=== PATIENT | female | born 1955 | race Caucasian/White ===

== ENCOUNTER 2020-01-30 10:10 | Inpatient (IN) ==
[2020-01-30] MEDS ORDERED: cefTRIAXone SODIUM 2,000 MG/70 ML BAG IV STA (10:36)
[2020-01-30] MEDS ORDERED: VANCOMYCIN CONSULT ACTIVE PRN (10:36)
[2020-01-30] MEDS ORDERED: VANCOMYCIN HCL 1,500 MG in SODIUM CHLORIDE 0.9% 500 ML IV ONE (10:36)
[2020-01-30] MEDS ORDERED: ONDANSETRON INJ 2 MG/ML 2 ML VIAL IV STA (10:40)
[2020-01-30] MEDS ORDERED: HYDROmorphone INJ 0.5 MG/0.5 ML SYR IV STA ×3 (10:40→14:09)
[2020-01-30] MEDS ORDERED: SODIUM CHLORIDE 0.9% 1000ML 1,000 ML IV SCH (10:45)
[2020-01-30 11:17] LABS: Basophils # (auto) 0.01 K/uL (0-0.2); Basophils % (auto) 0.1 %; Eosinophils # (auto) 0.08 K/uL (0-0.5); Eosinophils % (auto) 0.5 %; Hematocrit (blood only) 35.6 % (37-47); Hemoglobin 11.4 g/dL (12.0-16.0); Immature Granulocytes # (auto) 0.05 K/uL (0.00-0.02); Immature Granulocytes % (auto) 0.3 %; Lymphocytes # (auto) 1.56 K/uL (1.2-3.4); Lymphocytes % (auto) 8.9 %; Mean Corpuscular Hemoglobin 32.9 pg (25-34); Mean Corpuscular Volume 102.6 fL (80-100); Mean Platelet Volume 10.4 fL (7.4-10.4); Monocytes # (auto) 0.98 K/uL (0.11-0.59); Monocytes % (auto) 5.6 %; Neutrophils # (auto) 14.89 K/uL (1.4-6.5); Neutrophils % (auto) 84.6 %; Platelet Count 180 K/uL (130-400); RDW Coefficient of Variation 13.7 % (11.5-14.5); RDW Standard Deviation 51.4 fL (36.4-46.3); Red Blood Count 3.47 M/uL (4.2-5.4); White Blood Count 17.57 K/uL (4.8-10.8)
[2020-01-30 11:26] LABS: Partial Thromboplastin Ratio 0.9; Partial Thromboplastin Time 24.2 Seconds (21.0-31.0); Prothrombin Time 10.3 Seconds (9.0-12.0)
[2020-01-30 11:31] LABS: Albumin Level 3.3 gm/dl (3.4-5.0); BUN Creatinine Ratio 19.9 (10-20); Calcium 8.2 mg/dl (8.5-10.1); Creatinine Clr Calc Pharmacy 80.1 ml/min; Est GFR (African American) 102.3; Est GFR (Non-African American) 88.3; Magnesium 2.1 mg/dl (1.8-2.4); Potassium 3.7 mmol/L (3.5-5.1)
[2020-01-30 11:34] LABS: Albumin Globulin Ratio 1.1 (0.9-2); Bilirubin,Total 0.5 mg/dl (0.2-1); Total Protein 6.3 gm/dl (6.4-8.2)
[2020-01-30] MEDS ORDERED: IOVERSOL 100ml IV ONE (11:40)
--- NOTE | 2020-01-30 12:11 | CT Scan Report ---
ABDOMEN AND PELVIS CT WITH IV CONTRAST CT DOSE: 548.02 mGy.cm HISTORY: suprapubic cellulitis, ? abscess. TECHNIQUE: Multiaxial CT images of the abdomen and pelvis were performed following the use of intrave nous contrast. A dose lowering technique was utilized adhering to the principles of ALARA. COMPARISON STUDY: None. FINDINGS: The lung bases are clear. No pneumoperitoneum. No pneumatosis. No suspicious lytic or blast ic osseous lesions. Bilateral breast implants are partially imaged. Hepatic steatosis. Areas of focal fatty sparing near the gallbladder fossa and aleah hepatis. The main portal vein is patent. The gall bladder, spleen, adrenal glands, and pancreas are within normal limits. No hydronephrosis. Normal lef t kidney. A 5 mm hypodense lesion within the lower pole the right kidney. This is technically too sma ll to characterize but favors a cyst. No retroperitoneal lymphadenopathy. The bladder, uterus, bilate ral adnexa are within normal limits. Colonic diverticulosis. No evidence for acute diverticulitis. No bowel wall thickening or obstruction. Normal appendix. Within the anterior pelvis and left lower chago drant there is skin thickening and subcutaneous fat stranding. This favors a cellulitis. No loculated fluid collections to suggest an abscess. IMPRESSION: 1. Skin thickening and subcutaneous fat stranding within the left lower quadrant/anterior pelvis. Thi s favors a cellulitis. No loculated fluid collections to suggest an abscess. 2. Hepatic steatosis. 3. Colonic diverticulosis. ACT 112: Negative or not required by law. Electronically signed by: Moreno Marks M.D. 01/30/2020 12:10 PM
[2020-01-30] MEDS: SODIUM CHLORIDE 0.9% 1000ML 1,000 ML IV SCH ×2 (12:18→19:08)
--- NOTE | 2020-01-30 12:23 | History & Physical Report ---
Date of Service January 30, 2020 Assessment & Plan (1) Cellulitis: lower abd/genital skin infection started and continued on vancomycin and ceftriaxone, no abscess seen on ct scan patient will also continue on Valtrex therapy herpetic cultures are pending Patient has significant mons pubis cellulitis with induration erythema patient only has some very small open areas to the lateral left inguinal fold these are nondescript not appear classic for viral ulcerations or chancroid CT abd/pelvis IMPRESSION: 1. Skin thickening and subcutaneous fat stranding within the left lower quadrant/anterior pelvis. This favors a cellulitis. No loculated fluid collections to suggest an abscess. 2. Hepatic steatosis. 3. Colonic diverticulosis. Pain control with oral and parenteral opiate medications as well as Tylenol and ibuprofen (2) Viral infection: initial concern for herpes (possible shingles) continues on valtrex (3) Breast cancer: continue tamoxifen (4) HTN (hypertension): continue bisoprolol History of Present Illness Primary Care Provider: NO PCP 64-year-old female who presents here today for fever and indurated mons pubis with concern for secondary cellulitis of the skin. Her states that this is been about 2 months in the makings initially starting as a left leg nondescript dermatitis which was seemingly pustular in nature. She did see physicians at urgent care which she had one biopsied were released cut open. Been no defined diagnosis made initially insect bites were considered did not been discussed that this could be a shingles type rash. Patient was seen in our ER 1 day prior to admission where she had a vaginal evaluation including cultures. She was placed on Valtrex. Subsequently she developed fevers and worsening redness of her mons pubis returned with concern for secondary cellulitis patient is admitted to our [facility]. In the emergency department she was given vancomycin ceftriaxone. Previously there had been viral cultures as well as gynecological cultures obtained. Vaginal cultures are just growing strep at this time. Patient has no other complaints or problems Allergies Allergy/AdvReac Type Severity Reaction Status Date / Time latex Allergy Intermediate Burning/Rash Unverified 01/30/20 11:20 where latex touches Penicillins Allergy Unknown Was a Unverified 01/30/20 11:20 Child-Unknown varenicline [From Chantix] AdvReac Intermediate Nightmares Unverified 01/30/20 11:20 trazodone AdvReac Mild Grumpy Unverified 01/30/20 11:20 Home Medications Home Medications Medication Instructions Recorded Confirmed Type bisoprolol fumarate [Zebeta] 10 mg PO PM 01/29/20 01/30/20 History denosumab [Prolia] 60 mg SUBCUT Q180D 01/29/20 01/30/20 History hydrocodone-acetaminophen [[place]] 1 tab PO Q6H PRN #14 tab 01/29/20 01/30/20 Rx ibuprofen [Motrin IB] 200 mg PO Q6H PRN 01/29/20 01/30/20 History lidocaine 1 applic TOPICAL Q6H PRN 01/29/20 01/30/20 History methylphenidate HCl [Concerta] 18 mg PO QAM 01/29/20 01/30/20 History tamoxifen 20 mg PO PM 01/29/20 01/30/20 History valacyclovir [Valtrex] 1,000 mg PO TID 7 Days #21 tab 01/29/20 01/30/20 Rx Past Med/Surg History Medical History (Updated 01/30/20 @ 12:26 by Gaurang Jeffries MD) Breast cancer Social History (Updated 01/29/20 @ 16:04 by Ángela Loyd MD) Smoking Status: Former smoker Second Hand Exposure: No; Do You Dip or Chew Tobacco: No; Tobacco Cessation Education Requested by Patient: No Hx Alcohol Use: No Hx Substance Use: No Preferred Language: Thai Communication Ability: Effective Gi Asst Required: No Beliefs That Will Affect Care: None marital status: Current Living Situation: Spouse Other Information That Helps Us Care for You: No Feels Safe at Home: Yes Safety Concerns: Feels Safe At This Time Assistive Devices: None Review of Systems Review of Systems: Mild distress and fatigue no headache, blurry or double vision no speech or swallowing issues no chest pain, pressure or palpitations no shortness of breath, cough or wheezes no abdominal pain, nausea or vomiting, diarrhea or constipation no dysuria, hematuria or frequency She is a rash to her inguinal area and her mons pubis no focal joint pain or swelling no back pain, CVA tenderness or radicular pain no bruising, bleeding no focal signs of weakness or numbness or altered sensation no complaints of anxiety or depression. Physical Exam Physical Exam: The patient appeared well nourished and normally developed. Vital signs as documented. Head exam is normocephalic atraumatic no scleral icterus Neck is without JVD, thyromegaly, or carotid bruits. Lungs are clear to auscultation, no focal loss of breath sounds Cardiac exam, Rhythm is regular.. No murmurs, rubs or gallops. Abdominal exam reveals normal bowel sounds, soft non tender, no masses Nor male female external genitalia there is some punctate erythematous lesions which could be folliculitis there are 2-3 very small open areas to the left inguinal fold there is a general erythema in the inguinal fold however there is a more violaceous warm indurated area involving the whole mons pubis Extremities are nonedematous and both pedal pulses are present Neurologic exam is alert and oriented, no focal loss of strength or sensation Skin is with no outside skin changes except for what was described above Psychologically is without concerns for anxiety or depression. Results & Data Results & Data ([facility]) Vital Signs (Past 12 Hours) Vital Signs Temp Pulse Pulse Resp BP BP Pulse Ox 01/30/20 12:03 92 H 18 115/61 99 01/30/20 11:22 85 16 121/71 96 01/30/20 11:13 97 01/30/20 11:08 97 01/30/20 10:15 99.5 F 93 H 20 143/76 H 97 PG Care Time/CCT Total # of Minutes Spent Total Time Spent with Patient: Total time spent is greater than 50% in coordination of care (as documented) at patient's floor/unit and/or counseling patient: Coding Level of Care Code 74685 Initial Inpt Care Lvl 2 Diagnoses Cellulitis L03.90 Viral infection B34.9 Breast cancer C50.919 HTN (hypertension) I10
--- NOTE | 2020-01-30 12:34 | XRay Report ---
XR chest 1V portable HISTORY: SEPSIS COMPARISON: None. FINDINGS: The lungs are clear. Cardiac silhouette is normal in size. No pleural effusions. No pneumot horax. IMPRESSION: No acute process. ACT 112: Negative or not required by law. Electronically signed by: Moreno Marks M.D. 01/30/2020 12:33 PM
[2020-01-30 14:29] LABS: Appearance Urine Clear (Clear); Bilirubin Urine Negative (Negative); Blood Urine Negative (Negative); Color Urine Yellow; Glucose Urine UA Negative (Negative); Ketones Urine Negative (Negative); Leukocyte Esterase Urine Negative (Negative); Nitrite Urine Negative (Negative); Protein Urine Negative (Negative); Specific Gravity Urine > 1.045 (1.000-1.030); Urobilinogen Urine Negative (Negative); pH Urine 6.5 (4.5-7.5)
[2020-01-30] MEDS ORDERED: MoRPHine SULFATE 4 MG/ML 1 ML CARP\\VIAL IV PRN (15:05)
[2020-01-30] MEDS ORDERED: POLYETHYLENE (MIRALAX) 17 GM PACK PO PRN (15:05)
[2020-01-30] MEDS ORDERED: ALUMINUM/MAGNESIUM SUSP 30 ML UDC PO PRN (15:05)
--- NOTE | 2020-01-30 15:18 | Pharmacy Report ---
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 meets criteria for vancomycin AUC dosing nomogram AUC/VILMA is the preferred PK/PD target for vancomycin * Target AUC/VILMA = 400-600 * AUC guided dosing is effective and associated with decreased risk of nephrotoxicity Plan Vancomycin * Will dose per AUC dosing nomogram based on weight and crcl * Vancomycin 1500mg (19mg/kg) loading dose given in ED, then, * Vancomycin 1500mg IV Q12hrs per nomogram * Goal trough level for SST : 10 to 20 mcg/mL based on c/s * Trough level ordered for: 02/01/20 @ 0800 (prior to 4th dose) Pharmacy will continue to follow and will adjust dose/frequency as necessary. Thank you.
--- NOTE | 2020-01-30 15:41 | Emergency Department Note ---
History of Present Illness General Chief complaint: Infection Stated complaint: HAS ABSCESS IN GROIN HAS DEVELOPED FEVER Source: patient and family Mode of arrival: ambulatory Limitations: no limitations History of Present Illness Provider complaint: Increased pain and redness of the left groin, fever Maximum Pain Intensity: 8 This patient is a 64-year-old female who presents to the emergency department with complaints of increased redness and pain of the left lower abdomen/suprapubic region after being diagnosed yesterday with a shingles outbreak versus herpes outbreak of the left labia and groin. Patient has a remote history of breast cancer and does take tamoxifen. Several days ago she developed a redness and swelling of the left labia with "small abscesses." Yesterday the patient was evaluated in the emergency department and underwent a full pelvic exam with cultures, HSV serum testing which is pending she has been on Valtrex for which she took 1 dose in the ED and 1 dose at home. She has been taking [place] for pain. Patient states she spiked a temperature of 102 degrees and the pain has not been controlled. She is concerned about the possibility of a large abscess in the suprapubic region. Home Medications Home Medications Medication Instructions Recorded Confirmed Type bisoprolol fumarate [Zebeta] 10 mg PO PM 01/29/20 01/30/20 History denosumab [Prolia] 60 mg SUBCUT Q180D 01/29/20 01/30/20 History hydrocodone-acetaminophen [[place]] 1 tab PO Q6H PRN #14 tab 01/29/20 01/30/20 Rx ibuprofen [Motrin IB] 200 mg PO Q6H PRN 01/29/20 01/30/20 History lidocaine 1 applic TOPICAL Q6H PRN 01/29/20 01/30/20 History methylphenidate HCl [Concerta] 18 mg PO QAM 01/29/20 01/30/20 History tamoxifen 20 mg PO PM 01/29/20 01/30/20 History valacyclovir [Valtrex] 1,000 mg PO TID 7 Days #21 tab 01/29/20 01/30/20 Rx Allergies Allergy/AdvReac Type Severity Reaction Status Date / Time latex Allergy Intermediate Burning/Rash Unverified 01/30/20 11:20 where latex touches Penicillins Allergy Unknown Was a Unverified 01/30/20 11:20 Child-Unknown varenicline [From Chantix] AdvReac Intermediate Nightmares Unverified 01/30/20 11:20 trazodone AdvReac Mild Grumpy Unverified 01/30/20 11:20 Past Med/Surg History Medical History Breast cancer Social History Smoking Status: Former smoker Second Hand Exposure: No; Do You Dip or Chew Tobacco: No; Tobacco Cessation Education Requested by Patient: No Hx Alcohol Use: No Hx Substance Use: No Preferred Language: Guinean Communication Ability: Effective Forensic Medical Examiner Required: No Beliefs That Will Affect Care: None marital status: Current Living Situation: Spouse Other Information That Helps Us Care for You: No Feels Safe at Home: Yes Safety Concerns: Feels Safe At This Time Assistive Devices: None Review of Systems See HPI for pertinent positives & negatives. and A total of 10 systems reviewed and were otherwise negative Physical Exam Vital Signs Vital Signs - 24 hr 01/30/20 11:22 01/30/20 12:03 Pulse Rate [Apical] 85 92 H Pulse Rhythm [Apical] Regular Pulse Strength [Apical] Normal Respiratory Rate 16 18 Respiratory Effort / Characteristics Non-Labored Spontaneous Respiratory Depth Normal Respiratory Pattern Regular Blood Pressure [Left Arm] 121/71 115/61 Blood Pressure Mean [Left Arm] 87 79 Blood Pressure Position [Left Arm] Lying Pulse Oximetry 96 99 Oxygen Delivery Method Room Air Room Air Vital signs reviewed. General: Generally well-appearing 64-year-old female in some discomfort. HEENT: No scleral icterus, PERRLA, neck supple. Atraumatic. Cardiovascular: Regular rate and rhythm, no extra sounds. Pulmonary: Clear to auscultation bilaterally, normal work of breathing. Abdomen: Soft, nontender until the suprapubic region. Left aspect with rob ration and tenderness. Please see below. Nondistended, positive bowel sounds. Musculoskeletal: Atraumatic, no peripheral edema. Neurologic: Patient awake alert and oriented x 3 Skin: Warm, dry, left most aspect of the suprapubic region and left lower quadrant with erythema and induration. There is no palpable fluctuance. Several areas of vesicular type lesions and swelling noted to the left labia. Course Administered Medications Bisoprolol Fumarate (Bisoprolol Fumarate 5 Mg Tab) 10 mg PO PM DARRELL Stop: 02/29/20 20:59 Last Admin: 01/30/20 20:13 Dose: 10 mg Documented by: [id number] Enoxaparin Sodium (Enoxaparin Inj 40 Mg/0.4 Ml Syr) 40 mg SQ QAM [facility] Stop: 03/01/20 08:59 Last Admin: 01/31/20 08:28 Dose: 40 mg Documented by: [id number] Sodium Chloride (Nss 1000ml) 1,000 mls @ 150 mls/hr IV .Q6H40M [facility] Stop: 02/29/20 12:14 Last Admin: 01/31/20 03:07 Dose: 150 mls/hr Documented by: [id number] Infusion: 01/31/20 01:49 Dose: 150 mls/hr Documented by: [id number] Admin: 01/30/20 19:08 Dose: 150 mls/hr Documented by: [id number] Infusion: 01/30/20 18:59 Dose: 150 mls/hr Documented by: [id number] Admin: 01/30/20 12:18 Dose: 150 mls/hr Documented by: [id number] Vancomycin HCl 1,500 mg/ (Sodium Chloride) 530 mls @ 200 mls/hr IV Q12H [facility] Stop: 01/31/20 12:00 Last Admin: 01/31/20 08:26 Dose: 200 mls/hr Documented by: [id number] Infusion: 01/30/20 22:29 Dose: 0 mls/hr Documented by: [id number] Admin: 01/30/20 19:50 Dose: 200 mls/hr Documented by: [id number] Ibuprofen (Ibuprofen 200 Mg Tab) 400 mg PO Q6H PRN PRN Reason: Pain Stop: 02/29/20 15:04 Last Admin: 01/31/20 01:53 Dose: 400 mg Documented by: [id number] Admin: 01/30/20 18:08 Dose: 400 mg Documented by: [id number] Morphine Sulfate (Morphine Sulfate 2 Mg/Ml Carp) 2 mg IV Q4 PRN PRN Reason: Pain Stop: 02/13/20 15:04 Last Admin: 01/31/20 01:53 Dose: 2 mg Documented by: [id number] Oxycodone HCl (Oxycodone Hcl Ir 5 Mg Tab (Immediate Release)) 10 mg PO Q6H PRN PRN Reason: Moderate Pain Stop: 02/13/20 15:04 Last Admin: 01/31/20 07:40 Dose: 10 mg Documented by: [id number] Admin: 01/30/20 21:46 Dose: 10 mg Documented by: [id number] Admin: 01/30/20 16:36 Dose: 10 mg Documented by: [id number] Tamoxifen Citrate (Tamoxifen Citrate 10 Mg Tablet) 20 mg PO PM DARRELL Stop: 02/29/20 20:59 Last Admin: 01/30/20 20:13 Dose: 20 mg Documented by: [id number] Cosigned by: [id number] Valacyclovir HCl (Valacyclovir Hcl 500 Mg Tablet) 1,000 mg PO TID DARRELL Stop: 02/06/20 15:44 Last Admin: 01/31/20 08:31 Dose: 1,000 mg Documented by: [id number] Admin: 01/30/20 20:13 Dose: 1,000 mg Documented by: [id number] Admin: 01/30/20 17:16 Dose: 1,000 mg Documented by: [id number] Discontinued Medications Hydromorphone HCl (Hydromorphone Inj 0.5 Mg/0.5 Ml Syr) 0.5 mg IV NOW STA Stop: 01/30/20 10:41 Last Admin: 01/30/20 11:04 Dose: 0.5 mg Documented by: [id number] Hydromorphone HCl (Hydromorphone Inj 0.5 Mg/0.5 Ml Syr) 0.5 mg IV NOW STA Stop: 01/30/20 12:10 Last Admin: 01/30/20 12:14 Dose: 0.5 mg Documented by: [id number] Hydromorphone HCl (Hydromorphone Inj 0.5 Mg/0.5 Ml Syr) 0.5 mg IV NOW STA Stop: 01/30/20 14:10 Last Admin: 01/30/20 14:16 Dose: 0.5 mg Documented by: [id number] Sodium Chloride (Nss 1000ml) 1,000 mls @ 999 mls/hr IV .Q1H1M DARRELL Stop: 01/30/20 11:45 Last Infusion: 01/30/20 12:18 Dose: 0 mls/hr Documented by: [id number] Admin: 01/30/20 11:04 Dose: 999 mls/hr Documented by: [id number] Ceftriaxone Sodium (Rocephin) 2,000 mg in 70 mls @ 140 mls/hr IV NOW STA Stop: 01/30/20 11:05 Last Infusion: 01/30/20 12:05 Dose: 0 mls/hr Documented by: [id number] Admin: 01/30/20 11:15 Dose: 140 mls/hr Documented by: [id number] Vancomycin HCl 1,500 mg/ (Sodium Chloride) 530 mls @ 200 mls/hr IV NOW ONE Stop: 01/30/20 13:14 Last Infusion: 01/30/20 14:26 Dose: 0 mls/hr Documented by: [id number] Admin: 01/30/20 11:15 Dose: 200 mls/hr Documented by: [id number] Ioversol (Ioversol 100ml) 94 ml IV ONCE ONE Stop: 01/30/20 11:41 Last Admin: 01/30/20 11:41 Dose: 94 ml Documented by: [id number] Ondansetron HCl (Ondansetron Inj 2 Mg/Ml 2 Ml Vial) 4 mg IV NOW STA Stop: 01/30/20 10:41 Last Admin: 01/30/20 11:05 Dose: 4 mg Documented by: [id number] Medical Decision Making Differential Diagnosis Differential diagnosis: Shin's gangrene, abscess, shingles, general herpes, STI, bacterial vaginosis, trauma, hematoma Medical Records Attestation: I reviewed the patient's medical records. Home Medications Current Medication List: was personally reviewed by me Laboratory Data Attestation: I reviewed the patient's lab results. Result diagrams: 01/31/20 06:38 01/31/20 06:38 Lab Results 01/30/20 01/30/20 01/30/20 Range/Units 11:00 11:00 11:00 WBC 17.57 H (4.8-10.8) K/uL RBC 3.47 L (4.2-5.4) M/uL Hgb 11.4 L (12.0-16.0) g/dL Hct 35.6 L (37-47) % MCV 102.6 H (80-100) fL MCH 32.9 (25-34) pg MCHC 32.0 (32-36) g/dL RDW Std Deviation 51.4 H (36.4-46.3) fL RDW Coeff of Girma 13.7 (11.5-14.5) % Plt Count 180 (130-400) K/uL MPV 10.4 (7.4-10.4) fL Immature Gran % (Auto) 0.3 % Neut % (Auto) 84.6 % Lymph % (Auto) 8.9 % Scott % (Auto) 5.6 % Eos % (Auto) 0.5 % Baso % (Auto) 0.1 % Neut # (Auto) 14.89 H (1.4-6.5) K/uL Lymph # (Auto) 1.56 (1.2-3.4) K/uL Scott # (Auto) 0.98 H (0.11-0.59) K/uL Eos # (Auto) 0.08 (0-0.5) K/uL Baso # (Auto) 0.01 (0-0.2) K/uL Immature Gran # (Auto) 0.05 H (0.00-0.02) K/uL PT 10.3 (9.0-12.0) Seconds INR 1.0 (0.9-1.1) APTT 24.2 (21.0-31.0) Seconds PTT Ratio 0.9 Sodium 139 (136-145) mmol/L Potassium 3.7 (3.5-5.1) mmol/L Chloride 107 (98-107) mmol/L Carbon Dioxide 26 (21-32) mmol/L Anion Gap 6.0 (3-11) BUN 15 (7-18) mg/dl Creatinine 0.73 (0.6-1.2) mg/dl Est Cr Clr Drug Dosing 80.1 ml/min Est GFR ( Amer) 102.3 Est GFR (Non-Af Amer) 88.3 BUN/Creatinine Ratio 19.9 (10-20) Glucose 165 H (70-99) mg/dl Lactate (0.4-2.0) mmol/L Calcium 8.2 L (8.5-10.1) mg/dl Magnesium 2.1 (1.8-2.4) mg/dl Total Bilirubin 0.5 (0.2-1) mg/dl AST 29 (15-37) U/L ALT 125 H (12-78) U/L Alkaline Phosphatase 57 (45-117) U/L Total Protein 6.3 L (6.4-8.2) gm/dl Albumin 3.3 L (3.4-5.0) gm/dl Globulin 3.0 (2.5-4.0) gm/dl Albumin/Globulin Ratio 1.1 (0.9-2) Procalcitonin (0-0.5) ng/ml 01/30/20 01/30/20 Range/Units 11:00 11:00 WBC (4.8-10.8) K/uL RBC (4.2-5.4) M/uL Hgb (12.0-16.0) g/dL Hct (37-47) % MCV (80-100) fL MCH (25-34) pg MCHC (32-36) g/dL RDW Std Deviation (36.4-46.3) fL RDW Coeff of Girma (11.5-14.5) % Plt Count (130-400) K/uL MPV (7.4-10.4) fL Immature Gran % (Auto) % Neut % (Auto) % Lymph % (Auto) % Scott % (Auto) % Eos % (Auto) % Baso % (Auto) % Neut # (Auto) (1.4-6.5) K/uL Lymph # (Auto) (1.2-3.4) K/uL Scott # (Auto) (0.11-0.59) K/uL Eos # (Auto) (0-0.5) K/uL Baso # (Auto) (0-0.2) K/uL Immature Gran # (Auto) (0.00-0.02) K/uL PT (9.0-12.0) Seconds INR (0.9-1.1) APTT (21.0-31.0) Seconds PTT Ratio Sodium (136-145) mmol/L Potassium (3.5-5.1) mmol/L Chloride (98-107) mmol/L Carbon Dioxide (21-32) mmol/L Anion Gap (3-11) BUN (7-18) mg/dl Creatinine (0.6-1.2) mg/dl Est Cr Clr Drug Dosing ml/min Est GFR ( Amer) Est GFR (Non-Af Amer) BUN/Creatinine Ratio (10-20) Glucose (70-99) mg/dl Lactate 2.3 H* (0.4-2.0) mmol/L Calcium (8.5-10.1) mg/dl Magnesium (1.8-2.4) mg/dl Total Bilirubin (0.2-1) mg/dl AST (15-37) U/L ALT (12-78) U/L Alkaline Phosphatase (45-117) U/L Total Protein (6.4-8.2) gm/dl Albumin (3.4-5.0) gm/dl Globulin (2.5-4.0) gm/dl Albumin/Globulin Ratio (0.9-2) Procalcitonin < 0.05 (0-0.5) ng/ml Imaging Data Radiologist's Impression: XR chest 1V portable HISTORY: SEPSIS COMPARISON: None. FINDINGS: The lungs are clear. Cardiac silhouette is normal in size. No pleural effusions. No pneumothorax. IMPRESSION: No acute process. ACT 112: Negative or not required by law. Electronically signed by: Moreno Marks M.D. 01/30/2020 12:33 PM Dictated: 01/30/20 1233 Transcribed: 01/30/[address] WITH IV CONTRAST CT DOSE: 548.02 mGy.cm HISTORY: suprapubic cellulitis, ? abscess. TECHNIQUE: Multiaxial CT images of the abdomen and pelvis were performed following the use of intravenous contrast. A dose lowering technique was utilized adhering to the principles of ALARA. COMPARISON STUDY: None. FINDINGS: The lung bases are clear. No pneumoperitoneum. No pneumatosis. No suspicious lytic or blastic osseous lesions. Bilateral breast implants are partially imaged. Hepatic steatosis. Areas of focal fatty sparing near the gallbladder fossa and aleah hepatis. The main portal vein is patent. The gallbladder, spleen, adrenal glands, and pancreas are within normal limits. No hydronephrosis. Normal left kidney. A 5 mm hypodense lesion within the lower pole the right kidney. This is technically too small to characterize but favors a cyst. No retroperitoneal lymphadenopathy. The bladder, uterus, bilateral adnexa are within normal limits. Colonic diverticulosis. No evidence for acute diverticulitis. No bowel wall thickening or obstruction. Normal appendix. Within the anterior pelvis and left lower quadrant there is skin thickening and subcutaneous fat stranding. This favors a cellulitis. No loculated fluid collections to suggest an abscess. IMPRESSION: 1. Skin thickening and subcutaneous fat stranding within the left lower q uadrant/anterior pelvis. This favors a cellulitis. No loculated fluid collections to suggest an abscess. 2. Hepatic steatosis. 3. Colonic diverticulosis. ACT 112: Negative or not required by law. Electronically signed by: Moreno Marks M.D. 01/30/2020 12:10 PM Dictated: 01/30/20 1146 Transcribed: 01/30/20 1146 ECG Data Attestation: I personally reviewed and interpreted this ECG as follows: Indication: + other (sepsis) Rate (beats per minute): 82 Rhythm: + normal sinus ECG Intervals/blocks: + Normal QT-c ECG [place]: + Normal ECG ST segments: + Nonspecific ST abnormalities ECG Findings: + Other (Left atrial enlargement) Blood Pressure Blood Pressure Findings: Normal blood pressure Blood Pressure Disposition: did not require urgent referral MDM Narrative This pt was evaluated and appeared and appeared to be in no distress. IV access was obtained and lab work was drawn. Pt was medicated with IV dilaudid and zofran for pain/nausea. Pt was hydrated with NSS, medicated with IV ceftriaxone and vancomycin. Blood cultures were drawn prior to ATBx. CT scan of the abd and pelvis was performed and revealed cellulitic changes but no fluid collection. Lab work revealed elevated WBC, lactate. Pt likely has shingles vs herpes with superimposed cellulitis. Pt was d/w hospitalist service for further management. Pt and were made aware of the findings and plan, and agreed. Impression & Plan Cellulitis of suprapubic region, Herpes genitalis in women Discharge Plan Visit Data Chief Complaint: Infection Stated Complaint: HAS ABSCESS IN GROIN HAS DEVELOPED FEVER ED Provider: Ángela Loyd Discharge Problem: Cellulitis of suprapubic region, Herpes genitalis in women Patient Disposition: Admitted As Inpatient Discharge Instructions Interventions: ED Discharge Assessment Last Done: 01/30/20 14:33
[2020-01-30] MEDS: oxyCODONE HCL IR 5 MG TAB (IMMEDIATE RELEASE) PO PRN ×2 (16:36→21:46)
[2020-01-30] MEDS: valACYclovir HCL 500 MG TABLET PO SCH ×2 (17:16→20:13)
[2020-01-30] MEDS: IBUPROFEN 200 MG TAB PO PRN (18:08)
[2020-01-30] MEDS: VANCOMYCIN HCL 1,500 MG in SODIUM CHLORIDE 0.9% 500 ML IV SCH (19:50)
[2020-01-30] MEDS: BISOPROLOL FUMARATE 5 MG TAB PO SCH (20:13)
[2020-01-30] MEDS: TAMOXIFEN CITRATE 10 MG TABLET PO SCH (20:13)
[2020-01-31] MEDS: IBUPROFEN 200 MG TAB PO PRN ×3 (01:53→23:50)
[2020-01-31] MEDS: MoRPHine SULFATE 2 MG/ML CARP IV PRN ×2 (01:53→11:57)
[2020-01-31] MEDS: SODIUM CHLORIDE 0.9% 1000ML 1,000 ML IV SCH ×4 (03:07→21:35)
--- NOTE | 2020-01-31 06:20 | Electrocardiogram Report ---
Test Reason : Blood Pressure : / mmHG Vent. Rate : 082 BPM Atrial Rate : 082 BPM P-R Int : 144 ms QRS Dur : 086 ms QT Int : 372 ms P-R-T Axes : 060 009 032 degrees QTc Int : 434 ms Normal sinus rhythm Possible Left atrial enlargement Nonspecific T wave abnormality No previous ECGs available Confirmed by Rene Lazaro ([id number]) on 01/31/2020 6:19:24 AM Referred By: REFERRED SELF Confirmed By:Rene Lazaro
[2020-01-31 06:50] LABS: Hematocrit (blood only) 30.1 % (37-47); Hemoglobin 9.4 g/dL (12.0-16.0); Mean Corpuscular Hemoglobin 32.2 pg (25-34); Mean Corpuscular Hgb Conc 31.2 g/dL (32-36); Mean Corpuscular Volume 103.1 fL (80-100); Mean Platelet Volume 10.3 fL (7.4-10.4); Platelet Count 132 K/uL (130-400); RDW Coefficient of Variation 13.8 % (11.5-14.5); RDW Standard Deviation 51.5 fL (36.4-46.3); Red Blood Count 2.92 M/uL (4.2-5.4); White Blood Count 13.92 K/uL (4.8-10.8)
[2020-01-31 07:25] LABS: BUN Creatinine Ratio 13.9 (10-20); Calcium 7.4 mg/dl (8.5-10.1); Creatinine Clr Calc Pharmacy 124.4 ml/min; Est GFR (African American) 122.7; Est GFR (Non-African American) 105.9; Potassium 3.8 mmol/L (3.5-5.1)
[2020-01-31] MEDS: oxyCODONE HCL IR 5 MG TAB (IMMEDIATE RELEASE) PO PRN ×3 (07:40→23:51)
[2020-01-31] MEDS: VANCOMYCIN HCL 1,500 MG in SODIUM CHLORIDE 0.9% 500 ML IV SCH (08:26)
[2020-01-31] MEDS: ENOXAPARIN INJ 40 MG/0.4 ML SYR SQ SCH (08:28)
[2020-01-31] MEDS: valACYclovir HCL 500 MG TABLET PO SCH ×3 (08:31→20:44)
--- NOTE | 2020-01-31 08:42 | Hospitalist Progress Note ---
Date of Service January 31, 2020 Assessment & Plan (1) Severe sepsis: lactate initially 2.3 down to 1.9 on repeat WBC 13.9 HR up to 93 yesterday likely related to cellulitis blood cultures pending vitals improving Present on Admission?: Yes (2) Cellulitis: Most likely, she had either poison jai or less likely zoster on posterior left leg with superinfection by staph or strep. She has seen improvement with clinda/bactrim and steroids. Now, she has mons pubis cellulitis which appears to be strep cellulitis likely originating from folliculitis, though I can not say if there is underlying herpes simplex, zoster or Behcets, especially in setting of recent left leg infection as well as left mouth ulcers. provided several pictures of leg and mons pubis rash at various stages over the past two months I consulted dermatology for help evaluating for underlying herpes simplex, zoster, Behcet's disease cont vanc, rocephin check MRSA nasal swab continue on acyclovir therapy herpetic cultures are pending CT abd/pelvis IMPRESSION with skin thickening and subcutaneous fat stranding within the left lower quadrant/anterior pelvis. This favors a cellulitis. No loculated fluid collections to suggest an abscess. Use oral pain med as needed (3) Viral infection: initial concern for herpes vs zoster Continue on acyclovir until derm can see (4) Breast cancer: Continue tamoxifen (5) HTN (hypertension): Continue bisoprolol (6) Hepatic steatosis: visualized on CT INR 1 (7) Diverticulosis: also visualized on CT asymptomatic Admission and Anticipated Discharge Date Admission Date: January 30, 2020 Subjective Patient reports two month long duration of illness. Onset of itchy red rash on back of left leg, which she thinks started after walking in [place]. Patient was prescribed prednisone for possible poison jai. She was also told it could possibly have been zoster. Rash on posterior left leg completely resolved, though she still has a rubbery nodule on back of left knee. She went on to develop rash extending into groin and onto front pelvic area. No history of herpes or similar rashes. Was treated with clindamycin as well as bactrim. Completed a course of bactrim on 01-23 with some improvement in rash. Recurrence of pain on 01-27 with rapid progression of redness and induration of front pelvis through 01-29. Additionally patient has two ulcers on her left cheek which are new this week. Patient currently having some improvement with pain in her pelvic area, though thinks the red area is smaller, but "longer" after receiving antibiotics. She endorses persistent nausea. Review of Systems Constitutional: no fever, no chills, no fatigue, no weakness, no anorexia, no weight loss and no weight gain Ear, Nose, Mouth, Throat: no nasal congestion, no sore throat and no dysphagia Respiratory: no cough and no dyspnea Cardiovascular: no chest pain, no dyspnea on exertion, no orthopnea and no palpitations Gastrointestinal: + nausea; no abdominal pain, no vomiting, no hematemesis, no dysphagia, no constipation, no diarrhea/loose stools, no blood in stools and no melena Genitourinary: + dysuria; no urinary frequency, no hematuria and no flank pain Musculoskeletal: no back pain, no joint pain, no myalgia and no muscle weakness Integumentary: + boil, + rash and + lesions; no skin ulcer, no erythema, no dry skin and no pruritus Neurologic: no falls, no localized weakness, no generalized weakness, no numbness, no paresthesia, no tremor(s) and no headache(s) Psychiatric: no depression, no suicidal ideation, no homicidal ideation and no anxiety Endocrine: no cold intolerance and no heat intolerance Hematologic / Lymphatic: no easy bleeding and no easy bruising Physical Exam Constitutional: well developed and well nourished; no acute distress Eyes: PERRL, conjunctivae normal, anicteric sclerae ENMT: Mouth: oral mucous membranes not dry Respiratory: normal respiratory effort; no respiratory distress and no labored breathing Auscultation: lungs clear to auscultation bilaterally; no crackles, no rales, no rhonchi and no wheezes Cardiovascular: Rate/Rhythm: regular rate and regular rhythm Heart Sounds: no murmur and no cardiac rub Vessels: normal peripheral pulses and radial pulses present; no JVD Extremities: no edema Gastrointestinal (Abdomen): Inspection/Auscultation: abdomen normal to inspection and normal bowel sounds; abdomen not distended Percussion/Palpation: abdomen soft; abdomen nontender, no guarding, abdomen not rigid and no hepatosplenomegaly Musculoskeletal: Head/Neck/Chest: normocephalic and head atraumatic Spine: no cervical spinal tenderness, no cervical muscular tenderness, no thoracic spinal tenderness and no lumbar spinal tenderness Skin: left medial posterior knee with 1cm rubbery nodule nontender, non erythematous mons pubis with extensive red, indurated, warm rash most prominent anteriorly near hair follicle without any visible drainage or pus examination performed in presence of nurse corporate scheduler Neurologic: CN's II-XI intact bilaterally and moves all extremities Motor/Sensory: no tremor and no sensory deficit Psychiatric: Orientation: alert, oriented to person, oriented to place and oriented to time Apperance: appropriately groomed; not disheveled Affect: euthymic affect; no anxious affect and no tearful affect Genitourinary: no CVA tenderness no Avery catheter Results & Data Results & Data ([facility] [place]) Vital Signs (Past 12 Hours) Vital Signs Temp Pulse Resp BP Pulse Ox 01/31/20 07:35 37 C 73 16 108/72 96 01/30/20 23:25 37.2 C 79 18 94/56 L 93 PG Care Time/CCT Total # of Minutes Spent Total Time Spent with Patient: Total time spent is greater than 50% in coordination of care (as documented) at patient's floor/unit and/or counseling patient: Coding Level of Care Code 79470 Subseq Hosp Care Lvl 3 Diagnoses Severe sepsis A41.9; R65.20 Cellulitis L03.90 Viral infection B34.9 Breast cancer C50.919 HTN (hypertension) I10 Hepatic steatosis K76.0 Diverticulosis K57.90
--- NOTE | 2020-01-31 10:06 | Pharmacy Report ---
Pharmacy Abx Dose Short Note - Date of Service January 31, 2020 - Assessment & Plan Assessment 64 year old F receiving Vancomycin + Ceftriaxone + Acyclovir for treatment of cellulitis (lower abd/genital skin infection) * Abscess has been ruled out. Herpetic cultures are pending. * Given significant improvement in renal function today, dose will need changed to maintain trough > 10 mcg/mL. Plan Vancomycin * Change to 1000 mg IV every 8 hours * Goal trough level: ~ 15 mcg/mL * Trough level ordered for 02/01/2020 at 1530 to reflect steady state levels. Pharmacy will continue to follow and will adjust dose/frequency as necessary. Thank you.
[2020-01-31] MEDS: cefTRIAXone SODIUM 2,000 MG in DEXTROSE 5% 50 ML IV SCH (11:56)
[2020-01-31] MEDS: ONDANSETRON INJ 2 MG/ML 2 ML VIAL IV PRN (11:57)
[2020-01-31] MEDS ORDERED: ONDANSETRON INJ 2 MG/ML 2 ML VIAL IV PRN (12:49)
[2020-01-31] MEDS: VANCOMYCIN HCL 1,000 MG in SODIUM CHLORIDE 0.9% 250 ML IV SCH ×2 (18:03→23:48)
[2020-01-31] MEDS ORDERED: ACETAMINOPHEN 325 MG TAB PO PRN (18:43)
[2020-01-31] MEDS: BISOPROLOL FUMARATE 5 MG TAB PO SCH (20:43)
[2020-01-31] MEDS: TAMOXIFEN CITRATE 10 MG TABLET PO SCH (20:45)
[2020-02-01] MEDS: ONDANSETRON INJ 2 MG/ML 2 ML VIAL IV PRN ×2 (00:40→08:34)
[2020-02-01 05:42] LABS: Hematocrit (blood only) 29.2 % (37-47); Hemoglobin 9.3 g/dL (12.0-16.0); Mean Corpuscular Hemoglobin 32.9 pg (25-34); Mean Corpuscular Hgb Conc 31.8 g/dL (32-36); Mean Corpuscular Volume 103.2 fL (80-100); Platelet Count 140 K/uL (130-400); RDW Coefficient of Variation 13.7 % (11.5-14.5); RDW Standard Deviation 51.6 fL (36.4-46.3); Red Blood Count 2.83 M/uL (4.2-5.4); White Blood Count 9.78 K/uL (4.8-10.8)
[2020-02-01 06:07] LABS: BUN Creatinine Ratio 16.3 (10-20); C Reactive Protein 11.3 mg/dl (0-0.29); Calcium 7.1 mg/dl (8.5-10.1); Creatinine Clr Calc Pharmacy 127.1 ml/min; Est GFR (African American) 123.6; Est GFR (Non-African American) 106.6; Potassium 3.8 mmol/L (3.5-5.1)
[2020-02-01] MEDS: SODIUM CHLORIDE 0.9% 1000ML 1,000 ML IV SCH ×2 (06:27→16:16)
[2020-02-01] MEDS ORDERED: VANCOMYCIN TROUGH ONE ×2 (07:30→15:30)
[2020-02-01] MEDS: VANCOMYCIN HCL 1,000 MG in SODIUM CHLORIDE 0.9% 250 ML IV SCH ×2 (08:13→16:20)
[2020-02-01] MEDS: ENOXAPARIN INJ 40 MG/0.4 ML SYR SQ SCH (08:15)
[2020-02-01] MEDS: valACYclovir HCL 500 MG TABLET PO SCH (08:15)
[2020-02-01] MEDS: ACETAMINOPHEN 325 MG TAB PO PRN ×2 (08:29→18:51)
[2020-02-01] MEDS: oxyCODONE HCL IR 5 MG TAB (IMMEDIATE RELEASE) PO PRN (08:33)
--- NOTE | 2020-02-01 09:17 | Hospitalist Progress Note ---
Date of Service February 01, 2020 Assessment & Plan (1) Erysipelas: dermatology diagnosed as erysipelas which is typically caused by strep recommended keflex 500mg PO TID when ready for discharge for total of 14 days cont vanc, rocephin 1g daily for now checking MRSA nasal swab CT abd/pelvis (01-29) IMPRESSION with skin thickening and subcutaneous fat stranding within the left lower quadrant/anterior pelvis. This favors a cellulitis. No loculated fluid collections to suggest an abscess. Despite CT, I am concerned she is developing an abscess. May need general surgery to see her. Will reevaluate tomorrow. Present on Admission?: Yes (2) Nausea and vomiting: could be related to erysipelas vs medications vs constipation/ileus valtrex can cause vomiting. Doubt vital etiology, so dc'd. Also, high dose rocephin could cause nausea -- no bacteremia, so decreased to 1g daily. CMP with elevated LFTs but normal alk phos and normal bilirubin, so unlikely to be biliary source of vomiting monitor closely stop zofran which was not helping start compazine prn (3) Constipation: miralax ordered start docusate senna PO BID (4) Hypokalemia: Magnesium is normal replace with KCL 40meq IV once switch to LR which has some K (5) Elevated LFTs: will repeat CMP in a couple days could be chronic related to fatty liver Present on Admission?: Yes (6) Viral infection: initial concern for herpes vs zoster no vesicles currently stop valtrex (7) Hepatic steatosis: with elevated LFTs fatty liver was visualized on CT INR 1 (8) Cellulitis: resolved in left posterior leg onset 2 months ago Most likely, she had either poison jai on posterior left leg with superinfection by staph or strep. She had improvement with clinda/bactrim and steroids. (9) Severe sepsis: resolved sepsis 2' to erysipelas blood cultures NGTD (10) Breast cancer: Continue tamoxifen (11) HTN (hypertension): Continue bisoprolol (12) Diverticulosis: also visualized on CT asymptomatic Admission and Anticipated Discharge Date Admission Date: January 30, 2020 Subjective Patient feels terrible today. She has nausea not alleviated by zofran. She is vomiting in my presence. She has not tolerated any food today. She feels dizzy like the room is spinning -- no prior episodes of this. She has mild headache. The redness in her mons pubis is improving. She is complaining of anxiety, asking for something "to take the edge off." Review of Systems Constitutional: no fever, no chills, no fatigue, no weakness, no anorexia, no weight loss and no weight gain Ear, Nose, Mouth, Throat: no nasal congestion, no sore throat and no dysphagia Respiratory: no cough and no dyspnea Cardiovascular: no chest pain, no dyspnea on exertion, no orthopnea and no palpitations Gastrointestinal: + nausea, + vomiting and + constipation; no abdominal pain, no hematemesis, no dysphagia, no diarrhea/loose stools, no blood in stools and no melena Genitourinary: + dysuria; no urinary frequency, no hematuria and no flank pain Musculoskeletal: no back pain, no joint pain, no myalgia and no muscle weakness Integumentary: + boil, + rash and + lesions; no skin ulcer, no erythema, no dry skin and no pruritus Neurologic: + headache(s); no falls, no localized weakness, no generalized weakness, no numbness, no paresthesia and no tremor(s) Psychiatric: + anxiety; no depression, no suicidal ideation and no homicidal ideation Endocrine: no cold intolerance and no heat intolerance Hematologic / Lymphatic: no easy bleeding and no easy bruising Physical Exam Constitutional: well developed, well nourished, + ill appearing and + in distress (actively vomiting) Eyes: PERRL, conjunctivae normal, anicteric sclerae ENMT: Mouth: oral mucous membranes not dry Respiratory: normal respiratory effort; no respiratory distress and no labored breathing Auscultation: lungs clear to auscultation bilaterally; no crackles, no rales, no rhonchi and no wheezes Cardiovascular: Rate/Rhythm: regular rate and regular rhythm Heart Sounds: no murmur and no cardiac rub Vessels: normal peripheral pulses and radial pulses present; no JVD Extremities: no edema Gastrointestinal (Abdomen): Inspection/Auscultation: abdomen normal to inspection and normal bowel sounds; abdomen not distended Percussion/Palpation: abdomen soft; abdomen nontender, no guarding, abdomen not rigid and no hepatosplenomegaly Musculoskeletal: Head/Neck/Chest: normocephalic and head atraumatic Spine: no cervical spinal tenderness, no cervical muscular tenderness, no thoracic spinal tenderness and no lumbar spinal tenderness Skin: large red, indurated, tender area over mons pubis with fluctuant area to the left of the center approx 1cm x 1cm Neurologic: CN's II-XI intact bilaterally and moves all extremities Motor/Sensory: no tremor and no sensory deficit Psychiatric: Orientation: alert, oriented to person, oriented to place and oriented to time Apperance: appropriately groomed; not disheveled Affect: + anxious affect and + irritable affect Genitourinary: no CVA tenderness Results & Data Results & Data ([facility]) Vital Signs (Past 12 Hours) Vital Signs Temp Pulse Resp BP Pulse Ox 02/01/20 07:17 37.4 C 71 16 123/75 92 01/31/20 23:45 37.0 C 78 19 118/72 92 Laboratory Results WBC 11.4 Hg 9.5 lymphocyte count 1.01 K 3.3 Cl 113 Cr 0.56 AST 48 ALT 129 CRP 11.3 lipase 46 PG Care Time/CCT Total # of Minutes Spent Total Time Spent with Patient: Total time spent is greater than 50% in coordination of care (as documented) at patient's floor/unit and/or counseling patient: Coding Level of Care Code 13938 Subseq Hosp Care Lvl 3 Diagnoses Erysipelas A46 Nausea and vomiting R11.14 Vomiting type: bilious vomiting Constipation K59.00 Constipation type: unspecified constipation type Hypokalemia E87.6 Elevated LFTs R79.89 Viral infection B34.9 Hepatic steatosis K76.0 Cellulitis L03.311 Site of cellulitis: trunk Site of cellulitis of trunk: abdominal wall Severe sepsis A41.9; R65.20 Breast cancer C50.919 Breast location: unspecified site of breast Estrogen receptor status: unspecified Patient sex: female Laterality: unspecified laterality HTN (hypertension) I10 Hypertension type: essential hypertension Diverticulosis K57.90 (1) Cellulitis Site of cellulitis: trunk Site of cellulitis of trunk: abdominal wall Qualified Code(s): L03.311 - Cellulitis of abdominal wall (2) Breast cancer Breast location: unspecified site of breast Estrogen receptor status: unspecified Patient sex: female Laterality: unspecified laterality Qualified Code(s): C50.919 - Malignant neoplasm of unspecified site of unspecified female breast (3) HTN (hypertension) Hypertension type: essential hypertension Qualified Code(s): I10 - Essential (primary) hypertension (4) Nausea and vomiting Vomiting type: bilious vomiting Qualified Code(s): R11.14 - Bilious vomiting (5) Constipation Constipation type: unspecified constipation type Qualified Code(s): K59.00 - Constipation, unspecified
[2020-02-01] MEDS: cefTRIAXone SODIUM 2,000 MG in DEXTROSE 5% 50 ML IV SCH (10:58)
--- NOTE | 2020-02-01 13:02 | Dermatology Consultation ---
Date of Consultation February 01, 2020 Assessment & Plan (1) Erysipelas: Discussed with patient and that this is a form of deeper cellulitis. It is typically caused by group A strep. Unfortunately, the etiology/entry point of her infection is not completely clear based on her history. At this point, she does seem to be improving with IV antibiotics. - Continue IV antibiotics as per primary MD until stable to transition to oral therapy. She can then be transitioned to Cephalexin 500mg TID to complete a 14- day course total. She has a reported ?allergy to PCN, but is receiving IV ceftriaxone. - Discussed that there are is often desquamation of skin and postinflammatory pigment changes at affected areas once the treatment course has been completed. Discussed regular daily moisturization to help prevent any irritation as the skin finishes healing. - Discussed with patient and her that it is difficult to connect her prior rash from 2 months ago to her current episode. Present on Admission?: Yes (2) Aphthous ulcer: Reassured patient that this is likely a stress-related phenomenon. Doubt any other specific connection to her erysipelas otherwise. Patient feels that it is improving, so defer any specific treatment at this point. Present on Admission?: Yes History of Present Illness Reason for Consultation: Rash on the lower abdomen/suprapubic region Requesting Physician: Rafaela Salazar MD Attending Physician: Rafaela Salazar MD History of Present Illness Patient is a 64-year old female admitted to [facility] on 01/30/2020 for fever and rash involving the left lower abdomen/suprapubic skin. Patient reports that on 01/29/2020 she abruptly developed swelling and redness involving the left lower abdomen/suprapubic region. It seemed to progress relatively rapidly. She denies any itching, but it was somewhat uncomfortable/painful. Over the next 24 hours she started to develop some fevers and chills. She also had some nausea but denies any vomiting. She then presented to the ER and was admitted on 01/30/2020. Since admission she has been treated with IV vancomycin, IV ceftriaxone and IV acyclovir for the cellulitis. At the time of admission she did have a leukocytosis of 17,500. Blood cultures have not shown any growth to date. A CT scan of the abdomen and pelvis which showed skin thickening and fat stranding of the left lower abdomen suggestive of cellulitis; no fluid collection was present. She reports that the redness and swelling have improved over the past 24 hours. She denies any history of similar eruption in the past. She reports that 2 months ago she had a rash on the left lower leg for which she presented to an urgent care. She was apparently treated with 2 courses of oral antibiotic and prednisone for possible bites that were superficially infected. She states that she completed a course of Bactrim about 5 days prior to her admission. She wonders if this prior rash is possibly related to the current issue. Overall, she reports that she seems to be feeling better. She does report a couple of sores on the left buccal cheek that developed over the past 1-2 weeks. She wonders if they are related. No other complaints today. Allergies Allergy/AdvReac Type Severity Reaction Status Date / Time latex Allergy Intermediate Burning/Rash Unverified 01/30/20 11:20 where latex touches Penicillins Allergy Unknown Was a Unverified 01/30/20 11:20 Child-Unknown varenicline [From Chantix] AdvReac Intermediate Nightmares Unverified 01/30/20 11:20 trazodone AdvReac Mild Grumpy Unverified 01/30/20 11:20 Home Medications Home Medications Medication Instructions Recorded Confirmed Type bisoprolol fumarate [Zebeta] 10 mg PO PM 01/29/20 01/30/20 History denosumab [Prolia] 60 mg SUBCUT Q180D 01/29/20 01/30/20 History hydrocodone-acetaminophen [[place]] 1 tab PO Q6H PRN #14 tab 01/29/20 01/30/20 Rx ibuprofen [Motrin IB] 200 mg PO Q6H PRN 01/29/20 01/30/20 History lidocaine 1 applic TOPICAL Q6H PRN 01/29/20 01/30/20 History methylphenidate HCl [Concerta] 18 mg PO QAM 01/29/20 01/30/20 History tamoxifen 20 mg PO PM 01/29/20 01/30/20 History valacyclovir [Valtrex] 1,000 mg PO TID 7 Days #21 tab 01/29/20 01/30/20 Rx escitalopram oxalate 20 mg HS 02/01/20 02/01/20 History Patient History Medical History Breast cancer Social History Smoking Status: Former smoker Second Hand Exposure: No; Do You Dip or Chew Tobacco: No; Tobacco Cessation Education Requested by Patient: No Hx Alcohol Use: No Hx Substance Use: No Preferred Language: Citizen Of [place] Communication Ability: Effective 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 Beliefs That Will Affect Care: None marital status: Current Living Situation: Spouse Other Information That Helps Us Care for You: No Feels Safe at Home: Yes Safety Concerns: Feels Safe At This Time Assistive Devices: None Review of Systems Review of Systems: All systems reviewed & are unremarkable except as noted in HPI & below Constitutional: no fever, no chills and no sweats Eyes: no eye pain Ear, Nose, Mouth, Throat: as per Subjective / HPI Respiratory: no cough and no dyspnea Gastrointestinal: + nausea; no abdominal pain, no vomiting and no diarrhea/loose stools Genitourinary: no dysuria Physical Exam Constitutional: WD/WN, vitals as above Eyes: ocular mucosa WNL ENMT: 2 healing, superficial punched out ulcerations on the left inferior buccal mucosa Skin: well-demarcated, erythematous (fading), edematous, warm plaque involving the left suprapubic region no active dermatitis on the left lower leg/thigh, right lower leg/thigh on exam today Lymphatic: no inguinal lymphadenopathy Results & Data ([facility]) Vital Signs (Past 12 Hours) Vital Signs Temp Pulse Resp BP Pulse Ox 02/01/20 07:17 37.4 C 71 16 123/75 92 Laboratory Results 02/01/20 02/01/20 02/01/20 Range/Units 05:07 05:07 05:07 WBC 9.78 (4.8-10.8) K/uL RBC 2.83 L (4.2-5.4) M/uL Hgb 9.3 L (12.0-16.0) g/dL Hct 29.2 L (37-47) % MCV 103.2 H (80-100) fL MCH 32.9 (25-34) pg MCHC 31.8 L (32-36) g/dL RDW Std Deviation 51.6 H (36.4-46.3) fL RDW Coeff of Girma 13.7 (11.5-14.5) % Plt Count 140 (130-400) K/uL MPV 11.0 H (7.4-10.4) fL ESR 7 (0-21) mm/hr Sodium 144 (136-145) mmol/L Potassium 3.8 (3.5-5.1) mmol/L Chloride 117 H (98-107) mmol/L Carbon Dioxide 25 (21-32) mmol/L Anion Gap 2.0 L (3-11) BUN 8 (7-18) mg/dl Creatinine 0.46 L (0.6-1.2) mg/dl Est Cr Clr Drug Dosing 127.1 ml/min Est GFR ( Amer) 123.6 Est GFR (Non-Af Amer) 106.6 BUN/Creatinine Ratio 16.3 (10-20) Glucose 123 H (70-99) mg/dl Calcium 7.1 L (8.5-10.1) mg/dl C-Reactive Protein 11.30 H (0-0.29) mg/dl Microbiology 01/30/20 11:08 Aerobic Blood Culture - Preliminary Blood No growth in Aerobic bottle after 24 hours. Anaerobic Blood Culture - Preliminary No growth in Anaerobic bottle after 24 hours. 01/30/20 11:13 Aerobic Blood Culture - Preliminary Blood No growth in Aerobic bottle after 24 hours. Anaerobic Blood Culture - Preliminary No growth in Anaerobic bottle after 24 hours. PG Care Time/CCT Total # of Minutes Spent Total Time Spent with Patient: Total time spent is greater than 50% in coordination of care (as documented) at patient's floor/unit and/or counseling patient: Coding Level of Care Code 76282 Inpt Consult Level 2 Diagnoses Erysipelas A46 Aphthous ulcer K12.0
[2020-02-01] MEDS: PROCHLORPERAZINE 10 MG in SYRINGE 8 ML IV PRN (14:34)
[2020-02-01] MEDS ORDERED: LORazepam 1 MG TAB SL STA (14:43)
[2020-02-01 15:41] LABS: Basophils # (auto) 0.01 K/uL (0-0.2); Basophils % (auto) 0.1 %; Eosinophils % (auto) 0.9 %; Hematocrit (blood only) 30.3 % (37-47); Hemoglobin 9.5 g/dL (12.0-16.0); Immature Granulocytes # (auto) 0.03 K/uL (0.00-0.02); Immature Granulocytes % (auto) 0.3 %; Lymphocytes # (auto) 1.01 K/uL (1.2-3.4); Lymphocytes % (auto) 8.9 %; Mean Corpuscular Hemoglobin 32.2 pg (25-34); Mean Corpuscular Hgb Conc 31.4 g/dL (32-36); Mean Corpuscular Volume 102.7 fL (80-100); Mean Platelet Volume 10.9 fL (7.4-10.4); Monocytes # (auto) 0.95 K/uL (0.11-0.59); Monocytes % (auto) 8.3 %; Neutrophils # (auto) 9.31 K/uL (1.4-6.5); Neutrophils % (auto) 81.5 %; Platelet Count 157 K/uL (130-400); RDW Coefficient of Variation 13.5 % (11.5-14.5); RDW Standard Deviation 51.2 fL (36.4-46.3); Red Blood Count 2.95 M/uL (4.2-5.4); White Blood Count 11.41 K/uL (4.8-10.8)
[2020-02-01 15:57] LABS: Albumin Level 2.6 gm/dl (3.4-5.0); BUN Creatinine Ratio 12.9 (10-20); Calcium 7.2 mg/dl (8.5-10.1); Creatinine Clr Calc Pharmacy 104.4 ml/min; Est GFR (African American) 115.8; Est GFR (Non-African American) 99.9; Potassium 3.3 mmol/L (3.5-5.1)
--- NOTE | 2020-02-01 16:09 | Pharmacy Report ---
Pharmacy Abx Dose Short Note - Date of Service February 01, 2020 - Assessment & Plan Assessment 64 year old F receiving Vancomycin + Ceftriaxone + Acyclovir for treatment of cellulitis (lower abd/genital skin infection) Day # 3 of antimicrobial therapy. Plan Vancomycin * Trough level of 11.6 mcg/mL is therapeutic * Continue dose of 1000 mg IV every 8 hours * Goal trough level for cellulitis : 10 to 15 mcg/mL * Further trough level will be ordered if vanc continued or as necessary. Pharmacy will continue to follow and will adjust dose/frequency as necessary. Thank you.
[2020-02-01 16:14] LABS: Albumin Globulin Ratio 0.9 (0.9-2); Bilirubin,Total 0.3 mg/dl (0.2-1); Total Protein 5.6 gm/dl (6.4-8.2)
[2020-02-01 16:26] LABS: Magnesium 2.1 mg/dl (1.8-2.4)
[2020-02-01] MEDS: LACTATED RINGER'S 1,000 ML IV SCH (16:48)
[2020-02-01] MEDS: POTASSIUM CHLORIDE / WTR 10 MEQ/100 ML PLCT IV SCH ×3 (18:45→23:18)
[2020-02-01] MEDS: TAMOXIFEN CITRATE 10 MG TABLET PO SCH (20:55)
[2020-02-01] MEDS: DOCUSATE SODIUM/SENNA 50/8.6MG TAB PO SCH (20:57)
[2020-02-01] MEDS: BISOPROLOL FUMARATE 5 MG TAB PO SCH (20:57)
[2020-02-01] MEDS: ESCITALOPRAM OXALATE 20 MG TAB PO SCH (23:18)
[2020-02-02] MEDS: POTASSIUM CHLORIDE / WTR 10 MEQ/100 ML PLCT IV SCH (00:40)
[2020-02-02] MEDS: VANCOMYCIN HCL 1,000 MG in SODIUM CHLORIDE 0.9% 250 ML IV SCH ×2 (01:10→08:06)
--- NOTE | 2020-02-02 05:55 | Communication Note ---
Date of Service: February 02, 2020 Notified that pt had some sudden wheezing and O2 sat had dropped to 90on RA from 96%. Oxygen ordered as well as stat portable chest XR. XR appears unchanged from previous. Seeing pt in the room after some incentive spirometry with oxygen on, she stated that she felt better and was now able to sleep. 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
[2020-02-02] MEDS: LACTATED RINGER'S 1,000 ML IV SCH (06:14)
--- NOTE | 2020-02-02 06:35 | XRay Report ---
XR chest 1V portable CLINICAL HISTORY: Shortness of breath. COMPARISON STUDY: Chest radiograph January 30, 2020. FINDINGS: Bilateral breast implants are noted. There are left axillary surgical clips. Cardiac size i s normal. There is pulmonary vascular congestion. Bibasilar opacities have developed. There is suspec marty trace left pleural effusion. There is no pneumothorax. IMPRESSION: 1. Interval development of bibasilar opacities which may reflect an infectious process or atelectasis . 2. Pulmonary vascular congestion with trace left pleural effusion. ACT 112: Negative or not required by law. Electronically signed by: Zion López M.D. 02/02/2020 6:34 AM
[2020-02-02] MEDS: ENOXAPARIN INJ 40 MG/0.4 ML SYR SQ SCH (08:53)
[2020-02-02] MEDS: ESCITALOPRAM OXALATE 20 MG TAB PO SCH (08:53)
[2020-02-02] MEDS: DOCUSATE SODIUM/SENNA 50/8.6MG TAB PO SCH ×2 (08:54→22:04)
[2020-02-02 08:59] LABS: Hematocrit (blood only) 29.7 % (37-47); Hemoglobin 9.6 g/dL (12.0-16.0); Mean Corpuscular Hemoglobin 32.7 pg (25-34); Mean Corpuscular Hgb Conc 32.3 g/dL (32-36); Mean Platelet Volume 10.9 fL (7.4-10.4); Platelet Count 193 K/uL (130-400); RDW Coefficient of Variation 13.5 % (11.5-14.5); RDW Standard Deviation 49.7 fL (36.4-46.3); Red Blood Count 2.94 M/uL (4.2-5.4); White Blood Count 9.96 K/uL (4.8-10.8)
[2020-02-02 09:31] LABS: BUN Creatinine Ratio 10.6 (10-20); Calcium 7.6 mg/dl (8.5-10.1); Creatinine Clr Calc Pharmacy 97.4 ml/min; Est GFR (African American) 113.2; Est GFR (Non-African American) 97.7; Potassium 3.1 mmol/L (3.5-5.1)
[2020-02-02] MEDS: cefTRIAXone SODIUM 1,000 MG in DEXTROSE 5% 50 ML IV SCH (12:22)
[2020-02-02] MEDS ORDERED: VANCOMYCIN CONSULT ACTIVE PRN (13:44)
--- NOTE | 2020-02-02 14:29 | Pharmacy Report ---
Pharmacy Abx Dose Short Note - Date of Service February 02, 2020 - Assessment & Plan Assessment 64 year old F receiving Vancomycin + Ceftriaxone for treatment of cellulitis (lower abd/genital skin infection) * Vancomycin and Valtrex were both discontinued early this morning by provider. * However, vaginal culture results from the emergency department showed MRSA growing. Therefore, Vancomycin has been resumed this afternoon. * Trough was a subtherapeutic for a MRSA infection last evening. Patient did received full 1000 mg Vancomycin dose this morning at 0800. * Will order vanc for 1600 and increase dose Plan Vancomycin * Change to 1250 mg IV every 8 hours * Goal trough level: 15 - 20 mcg/mL * Trough level ordered for 02/03/2020 at 1530 to reflect steady state levels. Pharmacy will continue to follow and will adjust dose/frequency as necessary. Thank you.
[2020-02-02] MEDS: VANCOMYCIN HCL 1,250 MG in SODIUM CHLORIDE 0.9% 250 ML IV SCH (15:43)
[2020-02-02] MEDS: IBUPROFEN 200 MG TAB PO PRN (15:44)
[2020-02-02] MEDS ORDERED: POTASSIUM CHLORIDE 20 MEQ TABCR PO STA (15:47)
--- NOTE | 2020-02-02 15:47 | Hospitalist Progress Note ---
Date of Service February 02, 2020 Assessment & Plan (1) Erysipelas: dermatology diagnosed as erysipelas which is typically caused by strep recommended keflex 500mg PO TID when ready for discharge for total of 14 days cont vanc, rocephin 1g daily for now CT abd/pelvis (01-29) IMPRESSION with skin thickening and subcutaneous fat stranding within the left lower quadrant/anterior pelvis. This favors a cellulitis. No loculated fluid collections to suggest an abscess. Despite CT, I am concerned she is developing an abscess. May need general surgery to see her. Will reevaluate tomorrow. (2) Abscess: patient has area that has developed fluctuance and likely needs drained consulted general surgery to see (3) Methicillin resistant Staphylococcus aureus colonization: MRSA nasal swab was negative, however vaginal cultures grew MRSA and group B strep discussed with patient need for contact precautions will continue vancomycin (4) Hypokalemia: Magnesium is normal replace with KCL 40meq PO once (5) Nausea and vomiting: resolved today after BM, stopping valtrex and decreasing rocephin monitor closely cont compazine prn (6) Constipation: continue miralax and docusate senna PO BID (7) Elevated LFTs: will repeat CMP in a couple days could be chronic related to fatty liver (8) Viral infection: initial concern for herpes vs zoster no vesicles currently stop valtrex (9) Hepatic steatosis: with elevated LFTs fatty liver was visualized on CT INR 1 (10) Cellulitis: resolved in left posterior leg onset 2 months ago Most likely, she had either poison jai on posterior left leg with superinfection by staph or strep. She had improvement with clinda/bactrim and steroids. (11) Severe sepsis: resolved sepsis 2' to erysipelas blood cultures NGTD (12) Breast cancer: Continue tamoxifen (13) HTN (hypertension): Continue bisoprolol (14) Diverticulosis: also visualized on CT asymptomatic (15) DVT prophylaxis: regular diet DVT prophy low risk code a full Patient will be driven by 6 hours to her home when ready to discharge Admission and Anticipated Discharge Date Admission Date: January 30, 2020 Subjective Much better today. Slept well. Had a BM. Has not required compazine or pain medicines. Has no vomiting or nausea. Eager to eat lunch. Mood is much improved from yesterday. Patient reports persistent pain over mons, no drainage. Understands MRSA in pelvic cultures, but no MRSA in nares. Review of Systems Constitutional: no fever, no chills, no fatigue, no weakness, no anorexia, no weight loss and no weight gain Ear, Nose, Mouth, Throat: no nasal congestion, no sore throat and no dysphagia Respiratory: no cough and no dyspnea Cardiovascular: no chest pain, no dyspnea on exertion, no orthopnea and no palpitations Gastrointestinal: no abdominal pain, no nausea, no vomiting, no hematemesis, no dysphagia, no constipation, no diarrhea/loose stools, no blood in stools and no melena Genitourinary: no dysuria, no urinary frequency, no hematuria and no flank pain Musculoskeletal: no back pain, no joint pain, no myalgia and no muscle weakness Integumentary: + boil, + rash and + lesions; no skin ulcer, no erythema, no dry skin and no pruritus Neurologic: no falls, no localized weakness, no generalized weakness, no numbness, no paresthesia, no tremor(s) and no headache(s) Psychiatric: no depression, no suicidal ideation, no homicidal ideation and no anxiety Endocrine: no cold intolerance and no heat intolerance Hematologic / Lymphatic: no easy bleeding and no easy bruising Physical Exam Constitutional: well developed, well nourished, + ill appearing and + in distress (actively vomiting) Eyes: PERRL, conjunctivae normal, anicteric sclerae ENMT: Mouth: oral mucous membranes not dry Respiratory: normal respiratory effort; no respiratory distress and no labored breathing Auscultation: lungs clear to auscultation bilaterally; no crackles, no rales, no rhonchi and no wheezes Cardiovascular: Rate/Rhythm: regular rate and regular rhythm Heart Sounds: no murmur and no cardiac rub Vessels: normal peripheral pulses and radial pulses present; no JVD Extremities: no edema Gastrointestinal (Abdomen): Inspection/Auscultation: abdomen normal to inspection and normal bowel sounds; abdomen not distended Percussion/Palpation: abdomen soft; abdomen nontender, no guarding, abdomen not rigid and no hepatosplenomegaly Musculoskeletal: Head/Neck/Chest: normocephalic and head atraumatic Spine: no cervical spinal tenderness, no cervical muscular tenderness, no thoracic spinal tenderness and no lumbar spinal tenderness Skin: + induration, + erythema and + fluctulance improvement in erythematous patch over mons pubis with broad area of induration and tenderness and central 1cm x 1cm fluctuant nodule Neurologic: CN's II-XI intact bilaterally and moves all extremities Motor/Sensory: no tremor and no sensory deficit Psychiatric: Orientation: alert, oriented to person, oriented to place and oriented to time Apperance: appropriately groomed; not disheveled Affect: euthymic affect Genitourinary: no CVA tenderness Results & Data Results & Data ([facility]) Vital Signs (Past 12 Hours) Vital Signs Temp Pulse Resp BP Pulse Ox 02/02/20 07:09 37.3 C 81 18 125/73 95 Laboratory Results Abnormal lab results 02/01/20 02/02/20 02/02/20 Range/Units 15:27 08:31 08:31 Hgb 9.6 L (12.0-16.0) g/dL Hct 29.7 L (37-47) % MCV 101.0 H (80-100) fL RDW Std Deviation 49.7 H (36.4-46.3) fL MPV 10.9 H (7.4-10.4) fL Potassium 3.3 L 3.1 L (3.5-5.1) mmol/L BUN 6 L (7-18) mg/dl Creatinine 0.56 L (0.6-1.2) mg/dl Glucose 111 H 120 H (70-99) mg/dl Calcium 7.2 L 7.6 L (8.5-10.1) mg/dl AST 48 H (15-37) U/L ALT 129 H (12-78) U/L Total Protein 5.6 L (6.4-8.2) gm/dl Albumin 2.6 L (3.4-5.0) gm/dl Diagnostic Findings Microbiology 01/30/20 11:08 Blood Aerobic Blood Culture - Preliminary No growth in Aerobic bottle after 48 hours. 01/30/20 11:08 Blood Anaerobic Blood Culture - Preliminary No growth in Anaerobic bottle after 48 hours. 01/30/20 11:13 Blood Aerobic Blood Culture - Preliminary No growth in Aerobic bottle after 48 hours. 01/30/20 11:13 Blood Anaerobic Blood Culture - Preliminary No growth in Anaerobic bottle after 48 hours. MRSA nasal swab negative vaginal culture + MRSA colonization Medications Administered Current Inpatient Medications Acetaminophen (Acetaminophen 325 Mg Tab) 650 mg PO Q6H PRN PRN Reason: fever or pain Stop: 03/01/20 19:33 Last Admin: 02/01/20 18:51 Dose: 650 mg Documented by: Al Hydrox/Mg Hydrox/Simethicone (Aluminum/Magnesium Susp 30 Ml Udc) 30 ml PO Q6H PRN PRN Reason: Dyspepsia Stop: 02/29/20 15:04 Bisoprolol Fumarate (Bisoprolol Fumarate 5 Mg Tab) 10 mg PO PM [facility] Stop: 02/29/20 20:59 Last Admin: 02/01/20 20:57 Dose: 10 mg Documented by: Enoxaparin Sodium (Enoxaparin Inj 40 Mg/0.4 Ml Syr) 40 mg SQ QAM [facility] Stop: 03/01/20 08:59 Last Admin: 02/02/20 08:53 Dose: 40 mg Documented by: Escitalopram Oxalate (Escitalopram Oxalate 20 Mg Tab) 20 mg PO QAM [facility] Stop: 03/02/20 22:19 Last Admin: 02/02/20 08:53 Dose: 20 mg Documented by: Prochlorperazine 10 mg/ (Syringe) 10 mls @ 5 mls/min IV Q8H PRN PRN Reason: Nausea And Vomiting Stop: 03/02/20 13:41 Last Admin: 02/01/20 14:34 Dose: 5 mls/min Documented by: Ceftriaxone Sodium 1,000 mg/ (Dextrose) 50 mls @ 100 mls/hr IV Q24H [facility]; Protocol Stop: 02/09/20 10:59 Last Infusion: 02/02/20 12:58 Dose: Infused Documented by: Vancomycin HCl 1,250 mg/ (Sodium Chloride) 275 mls @ 200 mls/hr IV Q8H [facility] Stop: 02/09/20 15:59 Last Admin: 02/02/20 15:43 Dose: 200 mls/hr Documented by: Ibuprofen (Ibuprofen 200 Mg Tab) 400 mg PO Q6H PRN PRN Reason: Pain Stop: 02/29/20 15:04 Last Admin: 02/02/20 15:44 Dose: 400 mg Documented by: Miscellaneous Information (Vancomycin Consult Active) 1 ea N/A UD PRN PRN Reason: Consult Stop: 03/03/20 13:43 Oxycodone HCl (Oxycodone Hcl Ir 5 Mg Tab (Immediate Release)) 5 mg PO Q6H PRN PRN Reason: Moderate Pain Stop: 02/13/20 15:04 Polyethylene Glycol (Polyethylene (Miralax) 17 Gm Pack) 17 gm PO DAILY PRN PRN Reason: Constipation Stop: 02/29/20 15:04 Last Admin: 02/01/20 08:27 Dose: 17 gm Documented by: Senna/Docusate Sodium (Docusate Sodium/Senna 50/8.6mg Tab) 1 tab PO BID [facility] Stop: 03/02/20 20:59 Last Admin: 02/02/20 08:54 Dose: Not Given Documented by: Tamoxifen Citrate (Tamoxifen Citrate 10 Mg Tablet) 20 mg PO PM [facility] Stop: 02/29/20 20:59 Last Admin: 02/01/20 20:55 Dose: 20 mg Documented by: PG Care Time/CCT Total # of Minutes Spent Total Time Spent with Patient: Total time spent is greater than 50% in coordination of care (as documented) at patient's floor/unit and/or counseling patient: Coding Level of Care Code 39276 Subseq Hosp Care Lvl 3 Diagnoses Erysipelas A46 Abscess L02.91 Methicillin resistant Staphylococcus aureus colonization Z22.322 Hypokalemia E87.6 Nausea and vomiting R11.14 Vomiting type: bilious vomiting Constipation K59.00 Constipation type: unspecified constipation type Elevated LFTs R79.89 Viral infection B34.9 Hepatic steatosis K76.0 Cellulitis L03.311 Site of cellulitis: trunk Site of cellulitis of trunk: abdominal wall Severe sepsis A41.9; R65.20 Breast cancer C50.919 Breast location: unspecified site of breast Estrogen receptor status: unspecified Patient sex: female Laterality: unspecified laterality HTN (hypertension) I10 Hypertension type: essential hypertension Diverticulosis K57.90 DVT prophylaxis Z29.9 (1) Nausea and vomiting Vomiting type: bilious vomiting Qualified Code(s): R11.14 - Bilious vomiting (2) Constipation Constipation type: unspecified constipation type Qualified Code(s): K59.00 - Constipation, unspecified (3) Cellulitis Site of cellulitis: trunk Site of cellulitis of trunk: abdominal wall Qualified Code(s): L03.311 - Cellulitis of abdominal wall (4) Breast cancer Breast location: unspecified site of breast Estrogen receptor status: unspecified Patient sex: female Laterality: unspecified laterality Qualified Code(s): C50.919 - Malignant neoplasm of unspecified site of unspecified female breast (5) HTN (hypertension) Hypertension type: essential hypertension Qualified Code(s): I10 - Essential (primary) hypertension
--- NOTE | 2020-02-02 17:11 | Consultation ---
Date of Consultation February 02, 2020 Assessment & Plan (1) Abscess: (2) Abdominal wall abscess: pt is a 64 year-old female who was admitted to hospital with infection on lower abdominal wall, IMP: abscess on lower abdominal wall, Plan, I recommend to do I/D abscess on lower abdominal wall, tomorrow, D/W benefits, risks and alternatives of the surgery, the risks - infection, bleeding, sepsis, pt understood, she agrees with the surgery, I answered all questions, NPO after MN, hold lovenox tomorrow morning, Present on Admission?: Yes History of Present Illness History of Present Illness General Chief complaint: Infection Stated complaint: HAS ABSCESS IN GROIN HAS DEVELOPED FEVER Source: patient and family Mode of arrival: ambulatory Limitations: no limitations History of Present Illness Provider complaint: Increased pain and redness of the left groin, fever Maximum Pain Intensity: 8 This patient is a 64-year-old female who presents to the emergency department with complaints of increased redness and pain of the left lower abdomen/suprapubic region after being diagnosed yesterday with a shingles outbreak versus herpes outbreak of the left labia and groin. Patient has a remote history of breast cancer and does take tamoxifen. Several days ago she developed a redness and swelling of the left labia with "small abscesses." Yesterday the patient was evaluated in the emergency department and underwent a full pelvic exam with cultures, HSV serum testing which is pending she has been on Valtrex for which she took 1 dose in the ED and 1 dose at home. She has been taking Martell for pain. Patient states she spiked a temperature of 102 degrees and the pain has not been controlled. She is concerned about the possibility of a large abscess in the suprapubic region. I ( Celine Romo mD ) got a call for consult lower abdominal wall abscess, I reviewed pt's H/P, labs, CT scan with pt . Home Medications Home Medications Medication Instructions Recorded Confirmed Type bisoprolol fumarate [Zebeta] 10 mg PO PM 01/29/20 01/30/20 History denosumab [Prolia] 60 mg SUBCUT Q180D 01/29/20 01/30/20 History hydrocodone-acetaminophen [Martell] 1 tab PO Q6H PRN #14 tab 01/29/20 01/30/20 Rx ibuprofen [Motrin IB] 200 mg PO Q6H PRN 01/29/20 01/30/20 History lidocaine 1 applic TOPICAL Q6H PRN 01/29/20 01/30/20 History methylphenidate HCl [Concerta] 18 mg PO QAM 01/29/20 01/30/20 History tamoxifen 20 mg PO PM 01/29/20 01/30/20 History valacyclovir [Valtrex] 1,000 mg PO TID 7 Days #21 tab 01/29/20 01/30/20 Rx Allergies Allergy/AdvReac Type Severity Reaction Status Date / Time latex Allergy Intermediate Burning/Rash Unverified 01/30/20 11:20 where latex touches Penicillins Allergy Unknown Was a Unverified 01/30/20 11:20 Child-Unknown varenicline [From Chantix] AdvReac Intermediate Nightmares Unverified 01/30/20 11:20 trazodone AdvReac Mild Grumpy Unverified 01/30/20 11:20 Past Med/Surg History Medical History Breast cancer Social History Smoking Status: Former smoker Second Hand Exposure: No; Do You Dip or Chew Tobacco: No; Tobacco Cessation Education Requested by Patient: No Hx Alcohol Use: No Hx Substance Use: No Preferred Language: Irish Communication Ability: Effective 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 and A total of 10 systems reviewed and were otherwise negative Attending Physician: Rafaela Salazar MD Allergies Allergy/AdvReac Type Severity Reaction Status Date / Time latex Allergy Intermediate Burning/Rash Unverified 01/30/20 11:20 where latex touches Penicillins Allergy Unknown Was a Unverified 01/30/20 11:20 Child-Unknown varenicline [From Chantix] AdvReac Intermediate Nightmares Unverified 01/30/20 11:20 trazodone AdvReac Mild Grumpy Unverified 01/30/20 11:20 Home Medications Home Medications Medication Instructions Recorded Confirmed Type bisoprolol fumarate [Zebeta] 10 mg PO PM 01/29/20 01/30/20 History denosumab [Prolia] 60 mg SUBCUT Q180D 01/29/20 01/30/20 History hydrocodone-acetaminophen [Martell] 1 tab PO Q6H PRN #14 tab 01/29/20 01/30/20 Rx ibuprofen [Motrin IB] 200 mg PO Q6H PRN 01/29/20 01/30/20 History lidocaine 1 applic TOPICAL Q6H PRN 01/29/20 01/30/20 History methylphenidate HCl [Concerta] 18 mg PO QAM 01/29/20 01/30/20 History tamoxifen 20 mg PO PM 01/29/20 01/30/20 History valacyclovir [Valtrex] 1,000 mg PO TID 7 Days #21 tab 01/29/20 01/30/20 Rx escitalopram oxalate 20 mg HS 02/01/20 02/01/20 History Patient History Medical History (Updated 02/02/20 @ 17:12 by Celine Romo MD) Breast cancer Erysipelas Social History Smoking Status: Former smoker Second Hand Exposure: No; Do You Dip or Chew Tobacco: No; Tobacco Cessation Education Requested by Patient: No Hx Alcohol Use: No Hx Substance Use: No Preferred Language: Irish Communication Ability: Effective 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 Beliefs That Will Affect Care: None marital status: Current Living Situation: Spouse Other Information That Helps Us Care for You: No Feels Safe at Home: Yes Safety Concerns: Feels Safe At This Time Assistive Devices: Glasses Review of Systems Review of Systems: All systems reviewed & are unremarkable except as noted in HPI & below Constitutional: as per Subjective / HPI Eyes: as per Subjective / HPI Ear, Nose, Mouth, Throat: as per Subjective / HPI Respiratory: as per Subjective / HPI Cardiovascular: as per Subjective / HPI Additional Comments: HTN, Gastrointestinal: as per Subjective / HPI Genitourinary: as per Subjective / HPI breast cancer Musculoskeletal: as per Subjective / HPI Integumentary: as per Subjective / HPI Neurologic: as per Subjective / HPI Psychiatric: as per Subjective / HPI Endocrine: as per Subjective / HPI Hematologic / Lymphatic: as per Subjective / HPI Physical Exam Constitutional: WD/WN, vitals as above well developed and well nourished Eyes: PERRL, conjunctivae normal, anicteric sclerae ENMT: external ear and nose normal, oropharynx normal Neck: trachea midline, no thyromegaly Respiratory: normal respiratory effort, lungs clear to auscultation normal respiratory effort Cardiovascular: RRR, no murmur, no edema Rate/Rhythm: regular rate and regular rhythm Chest (Breasts): normal inspection/palpation of breasts Gastrointestinal (Abdomen): normal bowel sounds, soft, nontender, no hepatosplenomegaly Percussion/Palpation: abdomen soft redness and tenderness at lower left abdomen wall, Musculoskeletal: no cyanosis or clubbing, extremities motor strength 5/5 Skin: redness and tenderness at lower left abdomen wall, Neurologic: plantar reflexes intact bilaterally Psychiatric: Orientation: alert and oriented x 3 Results & Data ([facility]) Vital Signs (Past 12 Hours) Vital Signs Temp Pulse Resp BP Pulse Ox 02/02/20 07:09 37.3 C 81 18 125/73 95 Laboratory Results Abnormal lab results 02/02/20 02/02/20 Range/Units 08:31 08:31 RBC 2.94 L (4.2-5.4) M/uL Hgb 9.6 L (12.0-16.0) g/dL Hct 29.7 L (37-47) % MCV 101.0 H (80-100) fL RDW Std Deviation 49.7 H (36.4-46.3) fL MPV 10.9 H (7.4-10.4) fL Potassium 3.1 L (3.5-5.1) mmol/L Chloride 111 H (98-107) mmol/L BUN 6 L (7-18) mg/dl Glucose 120 H (70-99) mg/dl Calcium 7.6 L (8.5-10.1) mg/dl Diagnostic Findings ABDOMEN AND PELVIS CT WITH IV CONTRAST CT DOSE: 548.02 mGy.cm HISTORY: suprapubic cellulitis, ? abscess. TECHNIQUE: Multiaxial CT images of the abdomen and pelvis were performed following the use of intravenous contrast. A dose lowering technique was utilized adhering to the principles of ALARA. COMPARISON STUDY: None. FINDINGS: The lung bases are clear. No pneumoperitoneum. No pneumatosis. No suspicious lytic or blastic osseous lesions. Bilateral breast implants are partially imaged. Hepatic steatosis. Areas of focal fatty sparing near the gallbladder fossa and aleah hepatis. The main portal vein is patent. The gallbladder, spleen, adrenal glands, and pancreas are within normal limits. No hydronephrosis. Normal left kidney. A 5 mm hypodense lesion within the lower pole the right kidney. This is technically too small to characterize but favors a cyst. No retroperitoneal lymphadenopathy. The bladder, uterus, bilateral adnexa are within normal limits. Colonic diverticulosis. No evidence for acute diverticulitis. No bowel wall thickening or obstruction. Normal appendix. Within the anterior pelvis and left lower quadrant there is skin thickening and subcutaneous fat stranding. This favors a cellulitis. No loculated fluid collections to suggest an abscess. IMPRESSION: 1. Skin thickening and subcutaneous fat stranding within the left lower quadrant/anterior pelvis. This favors a cellulitis. No loculated fluid collections to suggest an abscess. 2. Hepatic steatosis. 3. Colonic diverticulosis.
[2020-02-02] MEDS: oxyCODONE HCL IR 5 MG TAB (IMMEDIATE RELEASE) PO PRN (20:15)
[2020-02-02] MEDS: TAMOXIFEN CITRATE 10 MG TABLET PO SCH (22:07)
[2020-02-02] MEDS: BISOPROLOL FUMARATE 5 MG TAB PO SCH (22:07)
[2020-02-03] MEDS: VANCOMYCIN HCL 1,250 MG in SODIUM CHLORIDE 0.9% 250 ML IV SCH ×3 (00:44→16:47)
[2020-02-03] MEDS: oxyCODONE HCL IR 5 MG TAB (IMMEDIATE RELEASE) PO PRN ×3 (02:11→20:04)
[2020-02-03 07:27] LABS: Hematocrit (blood only) 29.5 % (37-47); Hemoglobin 9.6 g/dL (12.0-16.0); Mean Corpuscular Hgb Conc 32.5 g/dL (32-36); Mean Corpuscular Volume 101.4 fL (80-100); Mean Platelet Volume 10.6 fL (7.4-10.4); Platelet Count 210 K/uL (130-400); RDW Coefficient of Variation 13.5 % (11.5-14.5); RDW Standard Deviation 49.5 fL (36.4-46.3); Red Blood Count 2.91 M/uL (4.2-5.4); White Blood Count 7.56 K/uL (4.8-10.8)
[2020-02-03] MEDS ORDERED: FUROSEMIDE 20 MG in SYRINGE 0 ML IV ONE (07:30)
[2020-02-03] MEDS: ESCITALOPRAM OXALATE 20 MG TAB PO SCH (07:36)
[2020-02-03] MEDS: DOCUSATE SODIUM/SENNA 50/8.6MG TAB PO SCH ×2 (07:37→20:19)
[2020-02-03] MEDS ORDERED: DEXAMETHASONE SOD INJ 4 MG/ML VIAL IV ONE (07:51)
[2020-02-03] MEDS ORDERED: fentaNYL citrate 100 MCG/2 ML VIAL IV ONE (07:51)
[2020-02-03 07:55] LABS: BUN Creatinine Ratio 16.3 (10-20); Creatinine Clr Calc Pharmacy 121.8 ml/min; Est GFR (African American) 121.8; Est GFR (Non-African American) 105.1; Magnesium 2.2 mg/dl (1.8-2.4); Potassium 3.4 mmol/L (3.5-5.1)
[2020-02-03 08:00] LABS: Ferritin 293.7 ng/ml (8-388)
--- NOTE | 2020-02-03 08:24 | Hospitalist Progress Note ---
Date of Service February 03, 2020 Assessment & Plan (1) Acute respiratory failure with hypoxia: likely 2' to IV aggressive IV fluids in setting of sepsis cxr with pulmonary edema COVID negative no history of CHF or heart disease (2) Pulmonary edema: gave lasix 20mg IV once this am with good urine output off fluids currently continue lasix BID at 9am and 2pm strict ins and outs daily weights monitor BMP daily (3) Erysipelas: dermatology diagnosed as erysipelas which is typically caused by strep recommended keflex 500mg PO TID when ready for discharge for total of 14 days cont vanc, rocephin 1g daily for now awaiting ID recommendations (4) Abscess: initial CT without abscess, but patient went on to develop fluctuant area general surgery Dr. Romo took to OR for I & D today and drained pus wound cultures pending wound care was consulted by Dr. Romo -- recs pending ID recs pending (5) Methicillin resistant Staphylococcus aureus colonization: MRSA nasal swab was negative, however vaginal cultures grew MRSA and group B strep discussed with patient need for contact precautions will continue vancomycin Consulted ID (6) Hypokalemia: Magnesium is normal replace with KCL 40meq PO once monitor closely during diuresis (7) Nausea and vomiting: resolved today after BM, stopping valtrex and decreasing rocephin monitor closely cont compazine prn (8) Elevated LFTs: discussed with patient could be related to fatty liver vs tamoxifen will hold tamoxifen until f/u with home oncologist (9) Hepatic steatosis: with elevated LFTs fatty liver was visualized on CT INR 1 (10) Cellulitis: resolved in left posterior leg onset 2 months ago Most likely, she had either poison jai on posterior left leg with superinfection by staph or strep. She had improvement with clinda/bactrim and steroids. (11) Viral infection: initial concern for herpes vs zoster no vesicles currently stopped valtrex lesion negative for HSV 1 or 2 DNA (12) Severe sepsis: resolved sepsis 2' to erysipelas blood cultures NGTD (13) Constipation: continue miralax and docusate senna PO BID (14) Breast cancer: holding tamoxifen in setting of elevated LFTs per patient wishes (15) HTN (hypertension): Continue bisoprolol (16) Diverticulosis: also visualized on CT asymptomatic (17) DVT prophylaxis: regular diet DVT prophy low risk code a full Patient will be driven by 6 hours to her home when ready to discharge Admission and Anticipated Discharge Date Admission Date: January 30, 2020 Subjective Required oxygen over night. Patient states that she does have dyspnea on exertion. No cough. Making a lot of urine after receiving lasix this morning. Breathing is already more comfortable. No nausea or vomiting. Tolerated her I & D this afternoon. Pus was drained and wound was packed in OR. Currently her pain is well controlled on her oral pain meds ibuprofen and oxycodone. Discussed her elevated LFT's -- patient states that her oncologist took her off of tamoxifen recently due to elevated LFTs. Patient wants to hold off on any more tamoxifen until she follows up with her oncololgist. Review of Systems Constitutional: no fever, no chills, no fatigue, no weakness, no anorexia, no weight loss and no weight gain Ear, Nose, Mouth, Throat: no nasal congestion, no sore throat and no dysphagia Respiratory: no cough and no dyspnea Cardiovascular: no chest pain, no dyspnea on exertion, no orthopnea and no palpitations Gastrointestinal: no abdominal pain, no nausea, no vomiting, no hematemesis, no dysphagia, no constipation, no diarrhea/loose stools, no blood in stools and no melena Genitourinary: no dysuria, no urinary frequency, no hematuria and no flank pain Musculoskeletal: no back pain, no joint pain, no myalgia and no muscle weakness Integumentary: + rash and + lesions; no boil, no skin ulcer, no erythema, no dry skin and no pruritus Neurologic: no falls, no localized weakness, no generalized weakness, no numbness, no paresthesia, no tremor(s) and no headache(s) Psychiatric: no depression, no suicidal ideation, no homicidal ideation and no anxiety Endocrine: no cold intolerance and no heat intolerance Hematologic / Lymphatic: no easy bleeding and no easy bruising Physical Exam Constitutional: well developed, well nourished, + ill appearing and + in distress (actively vomiting) Eyes: PERRL, conjunctivae normal, anicteric sclerae ENMT: Mouth: oral mucous membranes not dry Respiratory: normal respiratory effort (requiring 4L oxygen); no respiratory distress and no labored breathing Auscultation: lungs clear to auscultation bilaterally; no crackles, no rales, no rhonchi and no wheezes Cardiovascular: Rate/Rhythm: regular rate and regular rhythm Heart Sounds: no murmur and no cardiac rub Vessels: normal peripheral pulses and radial pulses present; no JVD Extremities: no edema Gastrointestinal (Abdomen): Inspection/Auscultation: abdomen normal to inspection and normal bowel sounds; abdomen not distended Percussi on/Palpation: abdomen soft; abdomen nontender, no guarding, abdomen not rigid and no hepatosplenomegaly Musculoskeletal: Head/Neck/Chest: normocephalic and head atraumatic Spine: no cervical spinal tenderness, no cervical muscular tenderness, no thoracic spinal tenderness and no lumbar spinal tenderness Skin: + induration and + erythema improvement in large erythematous, indurated region on mons pubis, currently packed and bandaged Neurologic: CN's II-XI intact bilaterally and moves all extremities Motor/Sensory: no tremor and no sensory deficit Psychiatric: Orientation: alert, oriented to person, oriented to place and oriented to time Apperance: appropriately groomed; not disheveled Affect: euthymic affect Genitourinary: no CVA tenderness Results & Data Results & Data ([facility]) Vital Signs (Past 12 Hours) Vital Signs Temp Pulse Resp BP Pulse Ox 02/03/20 07:28 37.0 C 65 18 143/74 H 94 02/02/20 23:20 93 02/02/20 23:19 37.1 C 68 16 134/72 86 L Laboratory Results Abnormal lab results 02/03/20 02/03/20 Range/Units 06:56 06:56 RBC 2.91 L (4.2-5.4) M/uL Hgb 9.6 L (12.0-16.0) g/dL Hct 29.5 L (37-47) % MCV 101.4 H (80-100) fL RDW Std Deviation 49.5 H (36.4-46.3) fL MPV 10.6 H (7.4-10.4) fL Potassium 3.4 L (3.5-5.1) mmol/L Chloride 113 H (98-107) mmol/L Creatinine 0.48 L (0.6-1.2) mg/dl Glucose 104 H (70-99) mg/dl Calcium 8.0 L (8.5-10.1) mg/dl TIBC 215 L (250-450) mcg/dl AST 46 H (15-37) U/L ALT 112 H (12-78) U/L Chlamydia NOT DETECTED gonorrhea NOT DETECTED HSV I IgG negative HSV II IgG negative HSV I DNA PCR not detected HSV II DNA PCR not detected COVID negative Medications Administered Current Inpatient Medications Acetaminophen (Acetaminophen 325 Mg Tab) 650 mg PO Q6H PRN PRN Reason: fever or pain Stop: 03/01/20 19:33 Last Admin: 02/01/20 18:51 Dose: 650 mg Documented by: Hydrocodone Bitart/Acetaminophen (Hydrocodone/Acetamophen 5/325mg Tab) 1 tab PO Q6H PRN PRN Reason: pain Stop: 02/17/20 11:19 Al Hydrox/Mg Hydrox/Simethicone (Aluminum/Magnesium Susp 30 Ml Udc) 30 ml PO Q6H PRN PRN Reason: Dyspepsia Stop: 02/29/20 15:04 Bisoprolol Fumarate (Bisoprolol Fumarate 5 Mg Tab) 10 mg PO PM [facility] Stop: 02/29/20 20:59 Last Admin: 02/02/20 22:07 Dose: 10 mg Documented by: Enoxaparin Sodium (Enoxaparin Inj 40 Mg/0.4 Ml Syr) 40 mg SQ QAM [facility] Stop: 03/01/20 08:59 Last Admin: 02/02/20 08:53 Dose: 40 mg Documented by: Escitalopram Oxalate (Escitalopram Oxalate 20 Mg Tab) 20 mg PO QAM [facility] Stop: 03/02/20 22:19 Last Admin: 02/03/20 07:36 Dose: 20 mg Documented by: Escitalopram Oxalate (Escitalopram Oxalate 20 Mg Tab) 20 mg PO [facility] Stop: 03/04/20 20:59 Prochlorperazine 10 mg/ (Syringe) 10 mls @ 5 mls/min IV Q8H PRN PRN Reason: Nausea And Vomiting Stop: 03/02/20 13:41 Last Admin: 02/01/20 14:34 Dose: 5 mls/min Documented by: Ceftriaxone Sodium 1,000 mg/ (Dextrose) 50 mls @ 100 mls/hr IV Q24H DARRELL; Protocol Stop: 02/09/20 10:59 Last Infusion: 02/03/20 12:45 Dose: Infused Documented by: Vancomycin HCl 1,250 mg/ (Sodium Chloride) 275 mls @ 200 mls/hr IV Q8H DARRELL Stop: 02/09/20 15:59 Last Infusion: 02/03/20 11:33 Dose: Infused Documented by: Ibuprofen (Ibuprofen 200 Mg Tab) 400 mg PO Q6H PRN PRN Reason: Pain Stop: 02/29/20 15:04 Last Admin: 02/02/20 15:44 Dose: 400 mg Documented by: Lidocaine (Lidocaine Hcl 5% Oint 30 Gm Tube) 1 appln EXT Q6H PRN PRN Reason: Pain Stop: 03/04/20 11:28 Miscellaneous (Methylphenidate Hcl [Concerta] 18 Mg: Order Awaiting Action) 1 ea N/A QS DARRELL Stop: 03/04/20 15:59 Miscellaneous Information (Vancomycin Consult Active) 1 ea N/A UD PRN PRN Reason: Consult Stop: 03/03/20 13:43 Oxycodone HCl (Oxycodone Hcl Ir 5 Mg Tab (Immediate Release)) 5 mg PO Q6H PRN PRN Reason: Moderate Pain Stop: 02/13/20 15:04 Last Admin: 02/03/20 12:09 Dose: 5 mg Documented by: Polyethylene Glycol (Polyethylene (Miralax) 17 Gm Pack) 17 gm PO DAILY PRN PRN Reason: Constipation Stop: 02/29/20 15:04 Last Admin: 02/01/20 08:27 Dose: 17 gm Documented by: Senna/Docusate Sodium (Docusate Sodium/Senna 50/8.6mg Tab) 1 tab PO BID DARRELL Stop: 03/02/20 20:59 Last Admin: 02/03/20 07:37 Dose: Not Given Documented by: Tamoxifen Citrate (Tamoxifen Citrate 10 Mg Tablet) 20 mg PO PM D[facility]RELL Stop: 02/29/20 20:59 Last Admin: 02/02/20 22:07 Dose: 20 mg Documented by: PG Care Time/CCT Total # of Minutes Spent Total Time Spent with Patient: Total time spent is greater than 50% in coordination of care (as documented) at patient's floor/unit and/or counseling p atient: Coding Level of Care Code 35154 Subseq Hosp Care Lvl 3 Diagnoses Acute respiratory failure with hypoxia J96.01 Pulmonary edema J81.0 Chronicity: acute Erysipelas A46 Abscess L02.91 Methicillin resistant Staphylococcus aureus colonization Z22.322 Hypokalemia E87.6 Nausea and vomiting R11.14 Vomiting type: bilious vomiting Elevated LFTs R79.89 Hepatic steatosis K76.0 Cellulitis L03.311 Site of cellulitis: trunk Site of cellulitis of trunk: abdominal wall Viral infection B34.9 Severe sepsis A41.9; R65.20 Constipation K59.00 Constipation type: unspecified constipation type Breast cancer C50.919 Breast location: unspecified site of breast Estrogen receptor status: unspecified Laterality: unspecified laterality Patient sex: female HTN (hypertension) I10 Hypertension type: essential hypertension Diverticulosis K57.90 DVT prophylaxis Z29.9 (1) Cellulitis Site of cellulitis: trunk Site of cellulitis of trunk: abdominal wall Qualified Code(s): L03.311 - Cellulitis of abdominal wall (2) Breast cancer Breast location: unspecified site of breast Estrogen receptor status: unspecified Laterality: unspecified laterality Patient sex: female Qualified Code(s): C50.919 - Malignant neoplasm of unspecified site of unspecified female breast (3) Nausea and vomiting Vomiting type: bilious vomiting Qualified Code(s): R11.14 - Bilious vomiting (4) HTN (hypertension) Hypertension type: essential hypertension Qualified Code(s): I10 - Essential (primary) hypertension (5) Constipation Constipation type: unspecified constipation type Qualified Code(s): K59.00 - Constipation, unspecified (6) Pulmonary edema Chronicity: acute Qualified Code(s): J81.0 - Acute pulmonary edema
--- NOTE | 2020-02-03 08:33 | History & Physical Bridge Note ---
Date of Service February 03, 2020 History & Physical Bridge Note I have examined the patient, reviewed the History & Physical and in the interval since the performance of the History & Physical I have noted the following changes of clinical significance: no changes noted
--- NOTE | 2020-02-03 09:13 | Anesthesiology Consultation ---
Date of Service February 03, 2020 The patient was admitted for pubic/abdominal abscess. She was found to be MRSA positive. She tested negative for Covid 19 on 02/02/20. The patient was given a large amount of IV fluid due to sepsis concern. She had some SOB yesterday and was noted to have a decreased SpO2 on room air. Her CXR from yesterday showed some pulmonary congestion. The patient was given a dose of Lasix this AM and has been urinating frequently. Her current SpO2 is in the low 90s on room air. Her lungs are clear to auscultation now. Assessment & Plan (1) Encounter for pre-operative examination: Chart Review Chart Review: Acceptable Risk for Surgery (necessary surgery) and Patient NOT seen in Pre Admission Testing Consults Requested none Teaching & Discussion medicine is following History Surgery Operation Date: 02/03/20 08:45 Proposed Procedures p Incision and Drainage Lower Abdomen - Celine Romo MD Height/Weight Height: 5 ft 3 in Weight: 80.1 kg Allergies Allergy/AdvReac Type Severity Reaction Status Date / Time latex Allergy Intermediate Burning/Rash Unverified 02/03/20 08:21 where latex touches Penicillins Allergy Unknown Was a Unverified 02/03/20 08:21 Child-Unknown varenicline [From Chantix] AdvReac Intermediate Nightmares Unverified 02/03/20 08:21 trazodone AdvReac Mild Grumpy Unverified 02/03/20 08:21 Medications Home Medications Medication Instructions Recorded Confirmed Last Taken bisoprolol fumarate [Zebeta] 10 mg PO PM 01/29/20 01/30/20 01/29/20 denosumab [Prolia] 60 mg SUBCUT Q180D 01/29/20 01/30/20 09/22/19 hydrocodone-acetaminophen [[place]] 1 tab PO Q6H PRN #14 tab 01/29/20 01/30/20 01/30/20 ibuprofen [Motrin IB] 200 mg PO Q6H PRN 01/29/20 01/30/20 01/30/20 lidocaine 1 applic TOPICAL Q6H PRN 01/29/20 01/30/20 01/30/20 methylphenidate HCl [Concerta] 18 mg PO QAM 01/29/20 01/30/20 01/30/20 tamoxifen 20 mg PO PM 01/29/20 01/30/20 01/29/20 valacyclovir [Valtrex] 1,000 mg PO TID 7 Days #21 tab 01/29/20 01/30/20 01/30/20 escitalopram oxalate 20 mg HS 02/01/20 02/01/20 3 Days Ago ~01/29/20 20 mg Active Medications Generic Name Dose Route Start Last Admin Trade Name Freq PRN Reason Stop Dose Admin Acetaminophen 650 mg 01/31/20 19:34 02/01/20 18:51 Acetaminophen 325 Mg Tab PO 03/01/20 19:33 650 mg Q6H PRN Administration fever or pain Bisoprolol Fumarate 10 mg 01/30/20 21:00 02/02/20 22:07 Bisoprolol Fumarate 5 Mg Tab PO 02/29/20 20:59 10 mg PM DARRELL Administration Enoxaparin Sodium 40 mg 01/31/20 09:00 02/02/20 08:53 Enoxaparin Inj 40 Mg/0.4 Ml Syr SQ 03/01/20 08:59 40 mg QAM DARRELL Administration Escitalopram Oxalate 20 mg 02/01/20 22:20 02/03/20 07:36 Escitalopram Oxalate 20 Mg Tab PO 03/02/20 22:19 20 mg QAM DARRELL Administration Prochlorperazine 10 mg/ 10 mls @ 5 mls/min 02/01/20 13:42 02/01/20 14:34 Syringe IV 03/02/20 13:41 5 mls/min Q8H PRN Administration Nausea And Vomiting Ceftriaxone Sodium 1,000 mg/ 50 mls @ 100 mls/hr 02/02/20 11:00 02/02/20 12:58 Dextrose IV 02/09/20 10:59 Infused Q24H DARRELL Infusion Protocol Vancomycin HCl 1,250 mg/ 275 mls @ 200 mls/hr 02/02/20 16:00 02/03/20 07:26 Sodium Chloride IV 02/09/20 15:59 200 mls/hr Q8H DARRELL Administration Ibuprofen 400 mg 01/30/20 15:05 02/02/20 15:44 Ibuprofen 200 Mg Tab PO 02/29/20 15:04 400 mg Q6H PRN Administration Pain Oxycodone HCl 5 mg 02/01/20 13:46 02/03/20 02:11 Oxycodone Hcl Ir 5 Mg Tab (Immediate Release) PO 02/13/20 15:04 5 mg Q6H PRN Administration Moderate Pain Polyethylene Glycol 17 gm 01/30/20 15:05 02/01/20 08:27 Polyethylene (Miralax) 17 Gm Pack PO 02/29/20 15:04 17 gm DAILY PRN Administration Constipation Senna/Docusate Sodium 1 tab 02/01/20 21:00 02/03/20 07:37 Docusate Sodium/Senna 50/8.6mg Tab PO 03/02/20 20:59 Not Given BID DARRELL Tamoxifen Citrate 20 mg 01/30/20 21:00 02/02/20 22:07 Tamoxifen Citrate 10 Mg Tablet PO 02/29/20 20:59 20 mg PM DARRELL Administration NPO Date Last Intake of Fluids: 02/02/20 Time Last Intake of Fluids: 23:45 Last Intake of Fluids Comment: sip with meds Date Last Intake of Solids: 02/02/20 Time Last Intake of Solids: 22:00 Past Medical History Medical History Anemia Breast cancer Erysipelas Obesity Social History Smoking Status: Former smoker Do You Dip or Chew Tobacco: No Hx Alcohol Use: No alcohol intake frequency: other Alcohol Intake Frequency Comment: not recently Hx Substance Use: No substance use type: does not use Physical Exam Vital Signs Last Vital Signs Temp 37.0 C 02/03/20 08:21 Pulse 69 02/03/20 08:21 Resp 20 02/03/20 08:21 BP 174/76 H 02/03/20 08:21 Pulse Ox 95 02/03/20 08:21 Testing Laboratory Results 02/03/20 06:56 02/03/20 06:56 PT 10.3 Seconds (9.0-12.0) 01/30/20 11:00 INR 1.0 (0.9-1.1) 01/30/20 11:00 APTT 24.2 Seconds (21.0-31.0) 01/30/20 11:00 Urine Color Yellow 01/30/20 14:00 Urine Appearance Clear (Clear) 01/30/20 14:00 Urine pH 6.5 (4.5-7.5) 01/30/20 14:00 Ur Specific [place] > 1.045 (1.000-1.030) H 01/30/20 14:00 Urine Protein Negative (Negative) 01/30/20 14:00 Urine Glucose (UA) Negative (Negative) 01/30/20 14:00 Urine Ketones Negative (Negative) 01/30/20 14:00 Urine Nitrite Negative (Negative) 01/30/20 14:00 Ur Leukocyte Esterase Negative (Negative) 01/30/20 14:00 01/30/20 11:08 Aerobic Blood Culture - Preliminary Blood No growth in Aerobic bottle after 48 hours. Anaerobic Blood Culture - Preliminary No growth in Anaerobic bottle after 48 hours. 01/30/20 11:13 Aerobic Blood Culture - Preliminary Blood No growth in Aerobic bottle after 48 hours. Anaerobic Blood Culture - Preliminary No growth in Anaerobic bottle after 48 hours. Electrocardiogram Date: 01/30/20 Findings: + NSR @ (82) and + NSST changes Chest X-Ray Date: 02/02/20 XR chest 1V portable CLINICAL HISTORY: Shortness of breath. COMPARISON STUDY: Chest radiograph January 30, 2020. FINDINGS: Bilateral breast implants are noted. There are left axillary surgical clips. Cardiac size is normal. There is pulmonary vascular congestion. Bibasilar opacities have developed. There is suspected trace left pleural effusion. There is no pneumothorax. IMPRESSION: 1. Interval development of bibasilar opacities which may reflect an infectious process or atelectasis. 2. Pulmonary vascular congestion with trace left pleural effusion. ACT 112: Negative or not required by law. Electronically signed by: Zion López M.D. 02/02/2020 6:34 AM Dictated: 02/02/20 0632 Transcribed: 02/02/20 0632
[2020-02-03] MEDS ORDERED: ePHEDrine sulfate 50 MG/ML AMP IV PRN (09:19)
[2020-02-03] MEDS ORDERED: ATROPINE SULFATE 0.1 MG/ML 10ML SYR IV PRN (09:19)
[2020-02-03] MEDS ORDERED: PHENYLEPHRINE 100MCG/ML 5ML SYR IV PRN (09:19)
[2020-02-03] MEDS ORDERED: LABETALOL HCL IV 5 MG/ML 20ML IV PRN (09:19)
[2020-02-03] MEDS ORDERED: ONDANSETRON INJ 2 MG/ML 2 ML VIAL IV PRN (09:19)
[2020-02-03] MEDS ORDERED: BUPIVACAINE 0.5 % 5 MG/1 ML MPF 30ML VIAL ONE (09:20)
[2020-02-03] MEDS ORDERED: LIDOCAINE HCL 1% 20 ML VIAL ONE (09:20)
[2020-02-03] MEDS ORDERED: ONDANSETRON INJ 2 MG/ML 2 ML VIAL IV ONE (09:46)
[2020-02-03] MEDS ORDERED: LIDOCAINE HCL 2% 2 ML VIAL/AMP(20MG/ML) INFIL ONE (09:46)
[2020-02-03] MEDS ORDERED: PROPOFOL IV EMULSION 10 MG/ML 20 ML VIAL IV ONE (09:46)
[2020-02-03] MEDS ORDERED: SUCCINYLCHOLINE CHLORIDE 20 MG/ML 10 ML VIAL IV ONE (09:46)
[2020-02-03] MEDS ORDERED: GLYCOPYRROLATE 0.2 MG/ML VIAL IM ONE (09:46)
[2020-02-03] MEDS ORDERED: ROCURONIUM BROMIDE 10 MG/ML 5 ML VIAL IV ONE (09:46)
[2020-02-03] MEDS ORDERED: BACITRACIN OINT 15 GM TUBE ONE (09:47)
--- NOTE | 2020-02-03 09:57 | Post Operative Brief Note ---
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
[2020-02-03] MEDS: fentaNYL citrate 100 MCG/2 ML VIAL IV PRN ×3 (10:14→10:30)
--- NOTE | 2020-02-03 10:25 | Operative Report (OR) ---
DATE OF OPERATION: 02/03/2020 PREOPERATIVE DIAGNOSIS: Lower abdominal wall abscess. POSTOPERATIVE DIAGNOSIS: Lower abdominal wall abscess. OPERATIVE PROCEDURE: Incision and drainage of lower abdominal wall abscess. SURGEON: Celine Romo MD. ANESTHESIA: General. ESTIMATED BLOOD LOSS: About 5 mL. FINDINGS: Lower abdominal wall abscess, wound culture sent. COMPLICATIONS: None. INDICATIONS FOR THE PROCEDURE: This is a 64-year-old female who was admitted to the hospital for lower abdominal wall abscess and I recommended to do I and D of the lower abdominal wall abscess. I did talk to the patient about the benefit, the risk, alternate procedure. I indicated the risks may include but not limited to such as bleeding, infection, recurrence. The patient understands. She signed informed consent and I answered all questions. DETAILS OF PROCEDURE: We brought the patient to the OR, put the patient in supine position. The patient received SCD on bilateral legs to prevent DVT. Also, patient received 1 gram of vancomycin IV for prophylactic antibiotic. The patient received general anesthesia without difficulties. The abdomen was prepped and draped in routine sterile fashion. After time-out, I injected local anesthesia by using 1% lidocaine mixed with 0.5% Marcaine around the abscess area in the lower abdomen. I then made about a 2 cm incision on the abscess area. There was pus coming out immediately. We sent the wound culture. Once we cleaned off the abscess cavity, hemostasis was obtained. Then, I used bacitracin with Kerlix for packing the wound. Then, we put the dressing on. The patient tolerated the procedure well. All instrument, needle and sponge counts were correct x2 at the end of the case. The patient was transferred to recovery room in stable condition. I attest to the content of the Intraoperative Record and any orders documented therein. Any exception s are noted below.
--- NOTE | 2020-02-03 10:50 | Anesthesiology Progress Note ---
Date of Service February 03, 2020 Anesthesia Post Procedure Vital Signs Vital Signs: Temp Pulse Pulse Resp BP Pulse Ox 02/03/20 10:35 76 13 149/88 H 91 02/03/20 10:25 70 15 132/80 96 02/03/20 10:15 71 17 151/86 H 95 02/03/20 10:07 37.0 C 72 15 138/86 95 02/03/20 08:21 37.0 C 69 20 174/76 H 95 02/03/20 07:28 37.0 C 65 18 143/74 H 94 02/02/20 23:20 93 02/02/20 23:19 37.1 C 68 16 134/72 86 L Pain Intensity Bilateral Generalized: Pain Intensity: 1 Left Lower Pelvic: Pain Intensity: 4 Lower Abdomen: Pain Intensity: 4 Transfer of Care Handoff Completed per policy Notes Mental Status: alert / awake / arousable Patient Amnestic to Procedure: Yes Nausea / Vomiting: adequately controlled Pain: adequately controlled Airway Patency, RR, SpO2: stable & adequate BP & HR: stable & adequate Hydration State: stable & adequate Anesthetic Complications: no major complications apparent and Pt Satisfied with anesthetic care Notes: The patient is awake and comfortable. Her SpO2 is 94 on 3 L NC. Her lungs are clear to auscultation in PACU.
[2020-02-03] MEDS ORDERED: NON-FORMULARY MEDICATION (Denosumab [Prolia] 60 mg/mL Syringe) SQ SCH (11:17)
[2020-02-03] MEDS ORDERED: LIDOCAINE HCL 5% OINT 30 GM TUBE EXT PRN (11:29)
[2020-02-03] MEDS: cefTRIAXone SODIUM 1,000 MG in DEXTROSE 5% 50 ML IV SCH (12:07)
[2020-02-03] MEDS ORDERED: POTASSIUM CHLORIDE 20 MEQ TABCR PO STA (13:06)
[2020-02-03] MEDS: IBUPROFEN 200 MG TAB PO PRN (13:07)
[2020-02-03] MEDS ORDERED: FUROSEMIDE 20 MG in SYRINGE 0 ML IV SCH (13:15)
[2020-02-03 15:05] LABS: Folate (Folic Acid) 18.16 ng/ml (>5.38)
[2020-02-03] MEDS ORDERED: VANCOMYCIN TROUGH ONE (15:30)
[2020-02-03] MEDS: HYDROCODONE/ACETAMOPHEN 5/325MG TAB PO PRN (15:56)
[2020-02-03] MEDS: PROCHLORPERAZINE 10 MG in SYRINGE 8 ML IV PRN (19:59)
[2020-02-03] MEDS: BISOPROLOL FUMARATE 5 MG TAB PO SCH (20:19)
[2020-02-03] MEDS ORDERED: ESCITALOPRAM OXALATE 20 MG TAB PO SCH (21:00)
[2020-02-04] MEDS: VANCOMYCIN HCL 1,250 MG in SODIUM CHLORIDE 0.9% 250 ML IV SCH ×3 (00:04→17:24)
[2020-02-04] MEDS: HYDROCODONE/ACETAMOPHEN 5/325MG TAB PO PRN ×4 (00:20→20:45)
[2020-02-04] MEDS: oxyCODONE HCL IR 5 MG TAB (IMMEDIATE RELEASE) PO PRN ×3 (04:01→17:24)
[2020-02-04 06:49] LABS: Basophils # (auto) 0.02 K/uL (0-0.2); Basophils % (auto) 0.3 %; Eosinophils # (auto) 0.13 K/uL (0-0.5); Eosinophils % (auto) 1.7 %; Hematocrit (blood only) 28.5 % (37-47); Immature Granulocytes # (auto) 0.03 K/uL (0.00-0.02); Immature Granulocytes % (auto) 0.4 %; Lymphocytes # (auto) 1.92 K/uL (1.2-3.4); Lymphocytes % (auto) 24.6 %; Mean Corpuscular Hemoglobin 32.3 pg (25-34); Mean Corpuscular Hgb Conc 31.6 g/dL (32-36); Mean Corpuscular Volume 102.2 fL (80-100); Mean Platelet Volume 10.4 fL (7.4-10.4); Monocytes # (auto) 0.76 K/uL (0.11-0.59); Monocytes % (auto) 9.7 %; Neutrophils # (auto) 4.94 K/uL (1.4-6.5); Neutrophils % (auto) 63.3 %; Platelet Count 229 K/uL (130-400); RDW Coefficient of Variation 13.6 % (11.5-14.5); RDW Standard Deviation 49.7 fL (36.4-46.3); Red Blood Count 2.79 M/uL (4.2-5.4)
[2020-02-04 07:31] LABS: Albumin Level 2.4 gm/dl (3.4-5.0); BUN Creatinine Ratio 22.8 (10-20); Calcium 8.2 mg/dl (8.5-10.1); Creatinine Clr Calc Pharmacy 94.3 ml/min; Est GFR (Non-African American) 96.6; Potassium 3.4 mmol/L (3.5-5.1)
[2020-02-04 07:34] LABS: Albumin Globulin Ratio 0.8 (0.9-2); Bilirubin,Total 0.3 mg/dl (0.2-1); Total Protein 5.4 gm/dl (6.4-8.2)
[2020-02-04] MEDS: ENOXAPARIN INJ 40 MG/0.4 ML SYR SQ SCH (08:04)
[2020-02-04] MEDS: DOCUSATE SODIUM/SENNA 50/8.6MG TAB PO SCH ×2 (08:05→20:41)
[2020-02-04] MEDS: ESCITALOPRAM OXALATE 20 MG TAB PO SCH (08:05)
[2020-02-04] MEDS: FUROSEMIDE 20 MG in SYRINGE 0 ML IV SCH ×2 (08:05→14:25)
--- NOTE | 2020-02-04 09:02 | Pharmacy Report ---
Pharmacy Abx Dose Short Note - Date of Service February 04, 2020 - Assessment & Plan Assessment 64 year old F receiving vancomycin and ceftriaxone for treatment of lower abdominal wall/genital cellulitis w/ abscess. Patient underwent I&D of this lower abdominal wall abscess yesterday, cultures obtained. Day # 7 of antimicrobial therapy Small increase in SCr noted (0.48 -> 0.62 mg/dL) overnight. Will recheck renal function and vancomycin trough tomorrow morning. Microbiology: 01/28: vaginal culture - MRSA + group B strep 01/29: Blood x 2 - no growth at 48 hours 02/02: Left lower quadrant of abdomen - pending Plan Vancomycin * Trough level of 13.7 mcg/mL is therapeutic * Continue dose of 1250 mg IV every 8 hours * Goal trough level for cellulitis : 10 to 20 mcg/mL * Repeat trough level ordered for: 02/05/20 Ceftriaxone * 1 g IV q24h per ordering provider Pharmacy will continue to follow and will adjust dose/frequency as necessary. Thank you.
[2020-02-04] MEDS ORDERED: cefTRIAXone SODIUM 2,000 MG in DEXTROSE 5% 50 ML IV SCH (11:00)
[2020-02-04] MEDS ORDERED: cefTRIAXone SODIUM 1,000 MG in DEXTROSE 5% 50 ML IV SCH (11:00)
[2020-02-04] MEDS: POTASSIUM CHLORIDE 20 MEQ TABCR PO SCH ×2 (11:38→20:38)
[2020-02-04] MEDS: MAGNESIUM OXIDE 400 MG TAB PO SCH ×2 (11:38→20:39)
--- NOTE | 2020-02-04 12:42 | Surgery Progress Note ---
Date of Service F/P S/P I& D lower abdominal wall abscess, POD 1 doing better, no fever, wound care nurse did dressing change today, February 04, 2020 Assessment & Plan (1) Abscess: (2) Abdominal wall abscess: pt is a 64 year-old female who was admitted to hospital with infection on lower abdominal wall, IMP: abscess on lower abdominal wall, Plan, I recommend to do I/D abscess on lower abdominal wall, tomorrow, D/W benefits, risks and alternatives of the surgery, the risks - infection, bleeding, sepsis, pt understood, she agrees with the surgery, I answered all questions, NPO after MN, hold lovenox tomorrow morning, 02/04/2020 12:40PM POD 1 doing better, continue IV antibiotic culture- staphylococcus aureus 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, thanks, Admission and Anticipated Discharge Date Admission Date: January 30, 2020 Review of Systems Constitutional: as per Subjective / HPI Eyes: as per Subjective / HPI Ear, Nose, Mouth, Throat: as per Subjective / HPI Respiratory: as per Subjective / HPI Cardiovascular: as per Subjective / HPI Additional Comments: HTN, Gastrointestinal: as per Subjective / HPI Genitourinary: as per Subjective / HPI breast cancer Musculoskeletal: as per Subjective / HPI Integumentary: as per Subjective / HPI Neurologic: as per Subjective / HPI Psychiatric: as per Subjective / HPI Endocrine: as per Subjective / HPI Hematologic / Lymphatic: as per Subjective / HPI Physical Exam Constitutional: WD/WN, vitals as above well developed and well nourished Eyes: PERRL, conjunctivae normal, anicteric sclerae ENMT: external ear and nose normal, oropharynx normal Neck: trachea midline, no thyromegaly Respiratory: normal respiratory effort, lungs clear to auscultation normal respiratory effort Cardiovascular: RRR, no murmur, no edema Rate/Rhythm: regular rate and regular rhythm Chest (Breasts): normal inspection/palpation of breasts Gastrointestinal (Abdomen): normal bowel sounds, soft, nontender, no hepatosplenomegaly Percussion/Palpation: abdomen soft (the dressing intact, ) Musculoskeletal: no cyanosis or clubbing, extremities motor strength 5/5 Neurologic: plantar reflexes intact bilaterally Psychiatric: Orientation: alert and oriented x 3 Results & Data ([facility]) Vital Signs (Past 12 Hours) Vital Signs Temp Pulse Resp BP Pulse Ox 02/04/20 07:06 37.0 C 62 18 131/75 92 02/04/20 03:36 37.0 C 60 18 132/76 94 Laboratory Results Abnormal lab results 02/04/20 02/04/20 Range/Units 06:02 06:02 RBC 2.79 L (4.2-5.4) M/uL Hgb 9.0 L (12.0-16.0) g/dL Hct 28.5 L (37-47) % MCV 102.2 H (80-100) fL MCHC 31.6 L (32-36) g/dL RDW Std Deviation 49.7 H (36.4-46.3) fL [place] # (Auto) 0.76 H (0.11-0.59) K/uL Immature Gran # (Auto) 0.03 H (0.00-0.02) K/uL Potassium 3.4 L (3.5-5.1) mmol/L Chloride 110 H (98-107) mmol/L BUN/Creatinine Ratio 22.8 H (10-20) Calcium 8.2 L (8.5-10.1) mg/dl ALT 99 H (12-78) U/L Total Protein 5.4 L (6.4-8.2) gm/dl Albumin 2.4 L (3.4-5.0) gm/dl Albumin/Globulin Ratio 0.8 L (0.9-2)
[2020-02-04] MEDS: BISOPROLOL FUMARATE 5 MG TAB PO SCH (20:38)
--- NOTE | 2020-02-04 21:58 | Hospitalist Progress Note ---
Date of Service February 04, 2020 Assessment & Plan (1) Acute respiratory failure with hypoxia: 2nd to pulmonary edema - iatrogenic from IV fluids. continues to diurese well. NC O2 weaned off. JVD still present on exam. give lasix this evening and likely another dose in am. may need 2-3 days PO lasix at discharge. (2) Pulmonary edema: improved clinically. continue diuresis with AM labs tomorrow. (3) Erysipelas: IMPROVED. lower abdominal wall. cont vanc/rocephin. Machelle MERCADO recommends doxy/cefdinir at discharge. abscess culture w/ staph - final sensitivities pending. (4) Abscess: POD #1 s/p I/D by Dr Romo. wound culture with staph aureus - likely to be MRSA. f/u culture in am. cont IV abx. Machelle MERCADO consult appreciated. (5) Methicillin resistant Staphylococcus aureus colonization: MRSA nasal swab was negative, however vaginal cultures grew MRSA and group B strep in the past. (6) Hypokalemia: replete repeat BMP am repeat mag in am (7) Elevated LFTs: ALT elevated only repeat in am could be related to fatty liver vs tamoxifen will hold tamoxifen until f/u with home oncologist will need repeat LFTs upon return home to [place] (8) Hepatic steatosis: noted (9) Severe sepsis: resolved sepsis 2' to erysipelas and abscess as above blood cultures negative (10) Constipation: continue miralax and docusate senna PO BID for maintenance improved (11) Breast cancer: holding tamoxifen in setting of elevated LFTs per patient wishes f/u with oncology upon return to [place] (12) HTN (hypertension): Continue bisoprolol mildly elevated BPs at times but hold off on additional meds diurese (13) Diverticulosis: also visualized on CT asymptomatic routine colon cancer screenings should be continued per guidelines (14) DVT prophylaxis: ambulation SCDs lovenox home tomorrow Admission and Anticipated Discharge Date Admission Date: January 30, 2020 Subjective breathing doing much better. VALENCIA improved. off O2. abdominal wall cellulitis/abscess feels much better. denies anorexia. denies diarrhea. at bedside. patient returning to [facility], at discharge. will follow-up with wound care on Friday. Review of Systems Constitutional: no fever, no chills, no fatigue and no anorexia Respiratory: no cough and no dyspnea Cardiovascular: no chest pain Physical Exam Constitutional: well developed and well nourished; no acute distress and no altered mental status ENMT: external ear and nose normal, oropharynx normal Respiratory: Auscultation: + diminished lung sounds (bases) and + rales (bases) Cardiovascular: Rate/Rhythm: regular rate and regular rhythm Heart Sounds: normal S1 and normal S2; no murmur Vessels: + JVD, posterior tibial pulses present and dorsalis pedis pulses present Extremities: no edema Gastrointestinal (Abdomen): normal bowel sounds, soft, nontender, no hepatosplenomegaly Skin: dressing intact mons region. lower abdominal wall with mild erythema only (blotchy). Psychiatric: A+Ox3, euthymic affect Results & Data Results & Data ([facility]) Vital Signs (Past 12 Hours) Vital Signs Temp Pulse Resp BP Pulse Ox 02/04/20 16:07 36.7 C 56 L 20 143/85 H 93 Laboratory Results Laboratory Results - last 24 hr 02/04/20 02/04/20 06:02 06:02 WBC 7.80 RBC 2.79 L Hgb 9.0 L Hct 28.5 L MCV 102.2 H MCH 32.3 MCHC 31.6 L RDW Std Deviation 49.7 H RDW Coeff of Girma 13.6 Plt Count 229 MPV 10.4 Immature Gran % (Auto) 0.4 Neut % (Auto) 63.3 Lymph % (Auto) 24.6 Owen % (Auto) 9.7 Eos % (Auto) 1.7 Baso % (Auto) 0.3 Neut # (Auto) 4.94 Lymph # (Auto) 1.92 Owen # (Auto) 0.76 H Eos # (Auto) 0.13 Baso # (Auto) 0.02 Immature Gran # (Auto) 0.03 H Sodium 142 Potassium 3.4 L Chloride 110 H Carbon Dioxide 28 Anion Gap 4.0 BUN 14 D Creatinine 0.62 Est Cr Clr Drug Dosing 94.3 Est GFR ( Amer) 112.0 Est GFR (Non-Af Amer) 96.6 BUN/Creatinine Ratio 22.8 H Glucose 95 Calcium 8.2 L Total Bilirubin 0.3 AST 30 ALT 99 H Alkaline Phosphatase 67 Total Protein 5.4 L Albumin 2.4 L Globulin 3.0 Albumin/Globulin Ratio 0.8 L wound cx - staph aureus, sensitivites pending blood cx's negative PG Care Time/CCT Total # of Minutes Spent Total Time Spent with Patient: Total time spent is greater than 50% in coordination of care (as documented) at patient's floor/unit and/or counseling patient: Coding Level of Care Code 88909 Subseq Hosp Care Lvl 2 Diagnoses Acute respiratory failure with hypoxia J96.01 Pulmonary edema J81.0 Chronicity: acute Erysipelas A46 Abscess L02.91 Methicillin resistant Staphylococcus aureus colonization Z22.322 Hypokalemia E87.6 Elevated LFTs R79.89 Hepatic steatosis K76.0 Severe sepsis A41.9; R65.20 Constipation K59.00 Constipation type: unspecified constipation type Breast cancer C50.919 Breast location: unspecified site of breast Estrogen receptor status: unspecified Laterality: unspecified laterality Patient sex: female HTN (hypertension) I10 Hypertension type: essential hypertension Diverticulosis K57.90 DVT prophylaxis Z29.9 (1) Breast cancer Breast location: unspecified site of breast Estrogen receptor status: unspecified Laterality: unspecified laterality Patient sex: female Qualified Code(s): C50.919 - Malignant neoplasm of unspecified site of unspecified female breast (2) Pulmonary edema Chronicity: acute Qualified Code(s): J81.0 - Acute pulmonary edema (3) HTN (hypertension) Hypertension type: essential hypertension Qualified Code(s): I10 - Essential (primary) hypertension (4) Constipation Constipation type: unspecified constipation type Qualified Code(s): K59.00 - Constipation, unspecified
[2020-02-05] MEDS: VANCOMYCIN HCL 1,250 MG in SODIUM CHLORIDE 0.9% 250 ML IV SCH ×2 (00:29→09:33)
[2020-02-05] MEDS: oxyCODONE HCL IR 5 MG TAB (IMMEDIATE RELEASE) PO PRN ×2 (01:45→09:34)
--- NOTE | 2020-02-05 07:24 | Surgery Progress Note ---
Date of Service February 05, 2020 Assessment & Plan (1) Abdominal wall abscess: -s/p I & D -culture thus far have grown Staph aureus with sensitivities pending: -currently receiving rocephin and vancomycin [facility] pt. notes she will be returning to [facility] and will follow-up with wound care in her home town Admission and Anticipated Discharge Date Admission Date: January 30, 2020 Subjective Pt. notes pain well controlled. No fevers, shakes, chills. No N/V Physical Exam Physical Exam: abscess I & D site examined--wound packing in place with some drainage of purulent fluid; minimal surrounding erythema Constitutional: well developed and well nourished; no acute distress Results & Data ([facility]) Vital Signs (Past 12 Hours) Vital Signs Temp Pulse Resp BP Pulse Ox 02/04/20 22:04 37.3 C 60 18 150/83 H 95 PG Care Time/CCT Total # of Minutes Spent Total Time Spent with Patient: Total time spent is greater than 50% in coordination of care (as documented) at patient's floor/unit and/or counseling p atient: Coding Level of Care Code None Diagnoses Abdominal wall abscess L02.211
[2020-02-05] MEDS ORDERED: VANCOMYCIN TROUGH ONE (07:30)
[2020-02-05 08:38] LABS: BUN Creatinine Ratio 21.3 (10-20); Calcium 8.6 mg/dl (8.5-10.1); Creatinine Clr Calc Pharmacy 97.4 ml/min; Est GFR (African American) 113.2; Est GFR (Non-African American) 97.7; Magnesium 2.1 mg/dl (1.8-2.4); Potassium 3.8 mmol/L (3.5-5.1)
--- NOTE | 2020-02-05 09:04 | Pharmacy Report ---
Pharmacy Abx Dose Short Note - Date of Service February 05, 2020 - Assessment & Plan Assessment * 64 year old F receiving vancomycin for treatment of lower abdominal wall/genital cellulitis w/ abscess. * Patient underwent I&D of this lower abdominal wall abscess on 02/02 * Day #8 of antimicrobial therapy * Renal function remains stable from yesterday, SCr 0.62 --> 0.60 Microbiology: 01/28: vaginal culture - MRSA + group B strep 01/29: Blood x 2 - no growth at 48 hours 02/02: Left lower quadrant of abdomen - MRSA Plan Vancomycin * Trough level of 18.8 mcg/mL is therapeutic for indication (10 to 20 mcg/mL) * Continue dose of 1250 mg IV every 8 hours for now. * Repeat trough level ordered for the morning of 02/06/20 to ensure level is still therapeutic. May need dose adjustment if renal function changes. Pharmacy will continue to follow and will adjust dose/frequency as necessary. Thank you.
[2020-02-05] MEDS: MAGNESIUM OXIDE 400 MG TAB PO SCH (09:37)
[2020-02-05] MEDS: POTASSIUM CHLORIDE 20 MEQ TABCR PO SCH (09:38)
[2020-02-05] MEDS: ESCITALOPRAM OXALATE 20 MG TAB PO SCH (09:39)
[2020-02-05] MEDS: DOCUSATE SODIUM/SENNA 50/8.6MG TAB PO SCH (09:40)
[2020-02-05] MEDS: ENOXAPARIN INJ 40 MG/0.4 ML SYR SQ SCH (09:41)
[2020-02-05] MEDS ORDERED: FUROSEMIDE 20 MG in SYRINGE 0 ML IV ONE (10:15)
[2020-02-05] MEDS: HYDROCODONE/ACETAMOPHEN 5/325MG TAB PO PRN (11:33)
--- NOTE | 2020-02-05 11:48 | Discharge Summary ---
Date of Service date of admission - January 30, 2020 date of discharge - February 05, 2020 Admission HPI Per Admitting Provider 64-year-old female who presents with fever and indurated mons pubis with concern for secondary cellulitis of the skin. Her states that this has been on going for about 2 months. Initially started as a left leg nondescript dermatitis which was seemingly pustular in nature. She did see physicians at an urgent care and had one of the pustules incised. Insect bites were considered. Patient was seen in our ER 1 day prior to admission where she had an evaluation including cultures. She was placed on Valtrex for questionable herpes. Subsequently she developed fevers and worsening redness of her mons pubis region and thus returned to our hospital. In the emergency department she was given vancomycin and ceftriaxone. Previously there had been viral cultures as well as gynecological cultures obtained. Vaginal cultures are growing strep. Principal Diagnosis MRSA skin abscess with cellulitis; s/p I & D of abscess Discharge Exam Constitutional well developed and well nourished; no acute distress and no altered mental status ENMT external ear and nose normal, oropharynx normal Respiratory Auscultation: + diminished lung sounds (bases) and + rales (bases - scant) Cardiovascular Rate/Rhythm: regular rate and regular rhythm Heart Sounds: normal S1 and normal S2; no murmur Vessels: + JVD (Minimal today - improved), posterior tibial pulses present and dorsalis pedis pulses present Extremities: no edema Gastrointestinal (Abdomen) normal bowel sounds, soft, nontender, no hepatosplenomegaly Skin in presence of nurse pharmacy director -- mons pubis region abscess with incision present and packing in place; minimal erythema surrounding the abscess cavity. Faint erythema over lower abdominal wall. Psychiatric A+Ox3, euthymic affect Discharge Data Allergies Allergy/AdvReac Type Severity Reaction Status Date / Time latex Allergy Intermediate Burning/Rash Unverified 02/03/20 08:21 where latex touches Penicillins Allergy Unknown Was a Unverified 02/03/20 08:21 Child-Unknown varenicline [From Chantix] AdvReac Intermediate Nightmares Unverified 02/03/20 08:21 trazodone AdvReac Mild Grumpy Unverified 02/03/20 08:21 Consultations [place] [facility] Dermatology General Surgery - Celine Romo MD [facility] Infectious Diseases -- telehealth consult Procedures Performed Operation Date: 02/03/20 08:45 Actual Procedures p Incision and Drainage Lower Abdomen(Left) - Celine Romo MD Ordered Studies 01/30/20 10:36 CT abd pelvis IV con only Stat IMPRESSION: 1. Skin thickening and subcutaneous fat stranding within the left lower quadrant/anterior pelvis. This favors a cellulitis. No loculated fluid collections to suggest an abscess. 2. Hepatic steatosis. 3. Colonic diverticulosis. Hospital Course (1) Acute respiratory failure with hypoxia: 2nd to pulmonary edema - iatrogenic from copious IV fluids in the setting of severe sepsis. Diuresed well with IV lasix and O2 was weaned off. Recommended oral lasix for 2 days post-discharge. Also recommended that upon return to [place] that she speak with her PCP about obtaining outpatient echocardiogram. Of note - she has no prior history of CHF or pulmonary edema. (2) Pulmonary edema: Improved clinically with IV diuresis. Will complete 2 more days of oral lasix after discharge. (3) Abscess: Patient initially had cellulitis/erysipelas of the mons pubis region that spread onto the lower abdomen well. CT abd/pelvis did not show abscess. Was on IV antibiotic therapy. Despite the above the patient ultimately developed a large abscess in the mons pubis region. On 02/03/2020 Dr Celine Romo from general surgery took Ms Harmon to the OR and performed I & D. Culture grew MRSA. The abscess cavity was repacked prior to discharge. She will need to follow-up on Friday, February 06 with either her PCP or a wound care center in her hometown in [place] for removal of the packing and replacement of that packing. At discharge she will take the following: * doxycycline 100mg BID x 7 days (to cover the MRSA) * omnicef 300mg BID x 7 days (to cover strep) (4) Erysipelas: Lower abdominal wall. Improved with IV antibiotics. [facility] [place] [facility] doxy[facility]ine/cefdinir at discharge. See above in "abscess.". (5) Methicillin resistant Staphylococcus aureus colonization: MRSA nasal swab was negative, however vaginal cultures grew MRSA and group B strep in the past. (6) Hypokalemia: Repleted and resolved at discharge (level of 3.8 on 02/05/20). (7) Elevated LFTs: ALT elevated only; other LFTs wnl. Could be related to fatty liver vs tamoxifen use. Will hold tamoxifen until f/u with home oncologist in [place]. Will need repeat LFTs upon return home to [place]. (8) Hepatic steatosis: Noted incidentally on CT abd/pelvis. (9) Severe sepsis: Resolved with IV fluids and IV antibiotics. Sepsis 2' to erysipelas and abscess as above. Blood cultures negative while here. (10) Constipation: continue miralax and docusate senna PO BID for maintenance. improved with the above. (11) Breast cancer: History of. Holding tamoxifen in setting of elevated LFTs. f/u with oncology upon return to [place]. (12) HTN (hypertension): Continue bisoprolol. (13) Diverticulosis: also visualized on CT asymptomatic routine colon cancer screenings should be continued per guidelines Total Time Total Time Spent Total Time Spent (In Minutes): 45 Total Time Includes: Examination of the Patient, Discharge Planning and Medication Reconciliation Discharge Plan Discharge Items Patient Disposition: Home - Self-Care Reason For Visit: Skin infection of lower abdominal wall Discharge Diagnosis: 1. MRSA (resistant staph) skin abscess of lower abdominal wall - incision/drainage performed on 02/03/2020 2. fluid overload of the lungs due to IV fluids - resolving nicely 3. mildly abnormal liver tests - repeat liver function tests needed upon return to [place] Activity: Resume your previous activity Driving/Machine Use: No driving if taking narcotic pain killer medication Non-emergency contact: Primary Care Provider Call non-emergency contact if: you have any medication questions, your symptoms worsen, your pain is not controlled, you have a fever, your wound has increased redness, your wound has increased drainage and your wound pain has increased Follow-up/Referrals: PCP,NO [Primary Care Provider] - (see the [facility] OR your family doctor on 02/07/20, to have your abscess cavity repacked ) Diet: Low Sodium (2gm) Addtl Attending Provider Instructions: You were hospitalized for skin infection of the lower abdominal wall. The float remover felt that this was something called "erysipelas" - a type of skin infection often caused by strep. Ultimately you developed a skin abscess in the lower abdominal wall region that required incision & drainage. The culture from the abscess grew resistant staph called "MRSA." The infection improved with IV antibiotics, the drainage procedure, and time. The Infectious Disease Specialist recommended the following antibiotics - * doxycycline 100mg twice daily for the MRSA * cefdinir 300mg twice daily to cover other bacteria including strep Take each antibiotic for 7 days. Start these TONIGHT. Note that doxycycline can cause heartburn. It can also cause a rash if you go out in the sun while taking it. Thus, please cover up over the next 10 days if you go outside in the sun. To prevent diarrhea from your antibiotics please take probiotics for 10 days. For any pain or discomfort you can take hydrocodone-acetaminophen 1 tablet every 6 hours as needed. This contains tylenol in it so don't take extra [id number] tylenol while taking the pain medication. Pain meds can cause drowsiness so do not drink alcohol while taking pain meds and do not drive. Please report to a Wound Care Center in [place] on FRIDAY to have the packing removed and replaced. If that is not possible then call your family doctor to have this done. Leave the packing in place until Friday. Keep it clean/dry. OK to shower but keep it covered. If the packing material accidentally comes out just leave it out - do not try to repack the wound. Simply call on Friday to have it looked at. In about 1 month have a MRSA nasal swab completed to see if you are a CARRIER of MRSA. Also have your family doctor repeat your liver function tests in the next 1-2 weeks. Hold your tamoxifen as this could be causing the elevated liver tests. You developed fluid build-up in the lungs while you were here as a result of being sick and getting copious IV fluids. This resolved with diuretics (water pills). On Friday, 02/05 and Friday, 02/06 -- take furosemide 20mg each morning along with potassium supplement. After these 2 days you do not need to continue on them. Please ask your family doctor to order you an echocardiogram to check your heart function. On your drive home please get out and walk/stretch about every 2 hours to prevent blood clots of the legs. Return to any hospital if -- * you have recurrent fevers over 100 degrees * you have severe diarrhea * you have worsening shortness of breath * you have worsening redness, swelling or drainage of the lower abdominal wall Pending Studies at Discharge: No Stand-Alone Forms: My [facility] Experenti, Smoking Cessation Medications and MD Order Prescriptions: New furosemide [Lasix] 20 mg tablet 20 mg PO DIRECTED Qty: 2 RF: 0 potassium chloride 20 mEq tablet extended release 20 meq PO DIRECTED Qty: 2 RF: 0 Continued lidocaine 5 % Cream 1 applic TOPICAL Q6H PRN (Reason: Pain) RF: 0 bisoprolol fumarate 10 mg Tablet 10 mg PO PM RF: 0 ibuprofen [Motrin IB] 200 mg Tablet 200 mg PO Q6H PRN (Reason: Pain) RF: 0 methylphenidate HCl [Concerta] 18 mg Tablet Extended Release 24hr 18 mg PO QAM RF: 0 Prolia 60 mg/mL Syringe 60 mg SUBCUT Q180D RF: 0 escitalopram oxalate 20 mg tablet 20 mg HS RF: 0 hydrocodone-acetaminophen [[place]] 5-325 mg tablet 1 tab PO Q6H PRN (Reason: pain) Qty: 14 RF: 0 Discontinued tamoxifen 20 mg Tablet 20 mg PO PM RF: 0 valacyclovir [Valtrex] 1 gram tablet 1,000 mg PO TID 7 Days Qty: 21 RF: 0 Discharge Orders: Discharge Order (Routine); Ordered 02/05/20 Ordered By: Yohan Blair/Other Patient Handouts: Pulmonary Edema, ED Abscess, Incision And Drainage, Saccharomyces boulardii Florastor oral dosage forms, Cefdinir capsules, Doxycycline tablets or capsules, Furosemide tablets Admission Data Admit Date/Time: 01/30/20 12:35 Attending Provider: Yohan Israel Admit Provider: Gaurang Jeffries Primary Care Provider: PCP,NO Other Providers: Gaurang Jeffries ; Orlin Grover ; Orlin Mandujano ; Ayush Melo ; Alisha Rudolph ; Da Vaz I. ; Tru Nicole II ; Paulette Romero ; Neel Tejeda ; Celine Romo Other Interventions: Discharge Summary Assessment (RN) Last Done: 02/05/20 11:54 Coding Level of Care Code D/C Day Management >30 mins Diagnoses Acute respiratory failure with hypoxia J96.01 Pulmonary edema J81.0 Chronicity: acute Abscess L02.91 Erysipelas A46 Methicillin resistant Staphylococcus aureus colonization Z22.322 Hypokalemia E87.6 Elevated LFTs R79.89 Hepatic steatosis K76.0 Severe sepsis A41.9; R65.20 Constipation K59.00 Constipation type: unspecified constipation type Breast cancer C50.919 Breast location: unspecified site of breast Estrogen receptor status: unspecified Laterality: unspecified laterality Patient sex: female HTN (hypertension) I10 Hypertension type: essential hypertension Diverticulosis K57.90
[2020-02-06] MEDS ORDERED: VANCOMYCIN TROUGH ONE (07:30)
== END 2020-02-05 12:50 | disposition home or self-care (01) | DRG 872 ==
LOC: ED 10:10 → SUATTDRO 12:35 → 3N 12:35